=== PATIENT | female | born 1945 | race Caucasian/White ===

== ENCOUNTER → 2018-09-16 | Outpatient (CLI) | payer OTHER ==
[~2018-09-16] VITALS: Ht 157.5 cm; Wt 104.3 kg
[~2018-09-16] MED LIST: ACCU-CHEK AVIV1 EAC1 INJECTION; ASPIR 8181 MG PO; CALCIUM 600 +1 EAC1 PO; EFFEXOR XR37.5 MG PO; FISH OIL 1,001000 M2 PO; KEFLEX500 M1 PO; LANTUS SOL100 UNIT/1 SUBQ; LASIX 20 MG TAB20 MG PO; LOSARTAN POTAS100 MG PO; MAGNESIUM500 MG PO; MOBIC7.5 MG PO; NEURONTIN 300300 M1 PO; OXYBUTYNIN 5 MG5 M2 PO; ROPINIROLE HCL4 MG PO
--- NOTE | ~2018-09-16 | HPC ---
[facility] [place] [address] PAIN MANAGEMENT CONSULTATION Name: GURDEEP ALLAN Room #: REG [facility] MHarvey.#: [id number] Admission: 09/16/18 Attend Phys: Pool Pate DO Discharge: Date of : 41 Report #: [id number] THIS REPORT FOR: //name// CC: Pool Francisco MD DATE OF SERVICE: 09/16/2018 CHIEF COMPLAINT: Low back pain, left lower extremity pain with paresthesias. HISTORY OF PRESENT ILLNESS: As you know, the patient is a morbidly obese 73-year-old female who has been referred to our service for low back pain, left lower extremity pain with paresthesias. The patient indicates her pain began 04/10/2018. The patient denies any specific injury or trauma that may have led to symptom development. The patient indicates that she has been experiencing slow and progressive worsening of symptoms, ultimately sought evaluation through her primary care physician who referred the patient to our clinic for evaluation. She comes to us today with no imaging studies, no x-rays, no MRI. She has been started on conservative medication therapy without benefit. The patient indicates today, pain is periodic, describes the pain as throbbing, stabbing, numbness and tingling. Places current pain score 3/10, daily average at 2-3/10, worst pain has been is 10/10. The patient states that standing, walking, repositioning and weather tend to exacerbate symptoms, staying off her leg in a recliner tends to improve pain. She has been referred to our service for evaluation for suspected lumbar radiculopathy. PAST MEDICAL HISTORY: 1. Class 3 morbid obesity. 2. Diabetes mellitus type 2, insulin-dependent. 3. Osteopenia. 4. Urinary incontinence. 5. Depression. 6. Hypertension. PAST SURGICAL HISTORY: 1. Appendectomy. 2. Bladder surgery. 3. Cervical surgery. 4. Cholecystectomy. 5. Hip surgery. 6. Hysterectomy. 7. Knee surgery. 8. Tonsillectomy. 9. Wrist surgery. [facility] [address] [place] [address] PAIN MANAGEMENT CONSULTATION Name: SANJANAGURDEEP ZOLTAN Room #: REG ROSE Cabello#: [id number] Admission: 09/16/18 Attend Phys: Pool Pate DO Discharge: Date of : 41 Report #: [id number] SOCIAL HISTORY: The patient denies tobacco, alcohol, IV or illicit drug use. She is retired, retired years ago. She is not receiving workmen's compensation nor is she trying to obtain disability benefits. She is accompanied by her daughter who is present in room today. REVIEW OF SYSTEMS: Positive for weight gain, eye disease, wearing corrective eyewear, blurred and double vision, cataracts, chronic sinus problems with rhinitis, mouth sores, sore throat with voice changes, asthma, wheezing, frequent urination, nocturia, incontinence and dribbling to urine, varicose veins, head injury, depression, insomnia, thyroid disease, insulin-dependent diabetes, excessive urination, low back pain, lower extremity pain with paresthesias. All other review of systems negative per 12-point review of systems other than those listed in history of present illness. Pain impact score 11-14, mild interference of daily activity secondary to pain. ALLERGIES: LISINOPRIL, BACTRIM, CIPROFLOXACIN, ZOLPIDEM, METFORMIN. CURRENT MEDICATIONS: Magnesium oxide 500 mg once a day, calcium carbonate 1 tab per day, cephalexin 500 mg twice a day, meloxicam 7.5 mg once a day, venlafaxine 37.5 mg once a day, insulin 100 units subq before bedtime, gabapentin 300 mg twice a day, ropinirole 4 mg once a day, oxybutynin 5 mg once a day, omega-3 fish oil 1 tab per day, aspirin 81 mg per day, losartan 100 mg once a day, furosemide 20 mg once a day. IMAGING: There is no imaging available. PQRS: The patient has osteoarthritic changes of the left upper extremity, right lower extremity. She has arthritic changes of the lumbar spine, no rheumatoid arthritis. She is placing pain intensity today 3/10. She is a fall risk, but has not had a fall in the last 3 months. She is not on blood thinners, but is treated for hypertension. She is not on chronic opioids. Her risk assessment tool for opioid addiction low. Functional assessment up to 14, mild interference of daily activity secondary to pain. PHYSICAL EXAMINATION: VITAL SIGNS: Blood pressure 134/67, pulse 65, respiratory rate 14 and unlabored. The patient is 96% on room air. Height 5 feet 2 inches tall, weight 230 pounds, BMI calculated 42.1. GENERAL: Well-developed, well-nourished, well-hydrated, class 3, morbidly obese 73-year-old female, appears her stated age, placing current pain score anywhere from 3-4/10. HEENT: Normocephalic, atraumatic. Pupils equal, round, reactive to light. Extraocular muscles are intact. Sclerae nonicteric without injection. NEUROLOGIC: Cranial nerves 2-12 grossly intact. Speech is fluent. The patient [address] [address] PAIN MANAGEMENT CONSULTATION Name: GURDEEP ALLAN Room #: REG [facility]#: [id number] Admission: 09/16/18 Attend Phys: Pool Pate DO Discharge: Date of : 41 Report #: [id number] deemed a good historian. LUNGS: Clear. No wheeze, rhonchi or rales. CARDIOVASCULAR: Regular. No appreciable gallop or rub. ABDOMEN: Soft. Severely obese, normoactive bowel sounds. EXTREMITIES: Show no clubbing, no cyanosis. There is 1-2+ nonpitting lower extremity edema noted bilaterally around the ankles and feet. MUSCULOSKELETAL: Lower extremity strength is deconditioned bilaterally, but rated at 5/5. She is intact to light touch from L1 through S2 dermatomes. Seated straight leg raising negative. Supine straight leg raising mildly positive. Tiffany's test negative. Gait antalgic favoring left lower extremity over right. Weightbearing causes intensification of pain. Seated position causes mild change in symptoms. Lumbar provocation testing including extension, rotation, lateral flexion all intensify axial back pain. Tiffany's test is equivocal right, negative left. Ankle clonus negative. Babinski is negative. ASSESSMENT: 1. Lumbar radiculopathy. 2. Lumbosacral spondylosis with radiculopathy. 3. Degeneration of lumbar spine. 4. Class 3 morbid obesity. 5. Chronic intractable pain. PLAN: 1. The patient, based on physical exam, history she provides and the description of distribution and intensity appears to be suffering from lumbar radiculopathy. The patient has been complaining of pain that began in 03/2018. The patient to date has not undergone x-ray or MRI imaging of the lumbar spine. This would help us to determine the extent of pathology in the lumbar region, so that we can help direct the patient's care more effectively. The patient and I discussed this at length today. Further imaging will begin with x-ray of the lumbar spine. The patient will be sent for this x-ray today. I am quite concerned in any patients that are on alendronate for treatment of osteopenia with low back symptoms of compression fractures, but also the amount of which steroids can be provided to the patient given their known potential of reducing mineralization of bone secondary to effects upon osteoblastic activity. The patient will undergo x-ray imaging initially. We will review the findings once they are available. 2. We did discuss the possibility of having the patient look towards treatment options for lumbar radicular symptoms. We discussed options, which would include physical therapy, stretching exercise, core strengthening and a concerted effort at weight loss. This is typically the cornerstone of treatment. We discussed medication management prior to providing suggestions of neuropathic pain medications and potential low dose opioid for pain control. We discussed epidural injections under fluoroscopic guidance assuming her osteopenia is not advanced to an osteoporosis level. We discussed surgical options with the patient today. After reviewing risks and benefits of all [address] [address] PAIN MANAGEMENT CONSULTATION Name: SANJANAGURDEEP Room #: REG CLMartir Cabello#: [id number] Admission: 09/16/18 Attend Phys: Pool Pate DO Discharge: Date of : 41 Report #: [id number] proposed treatment options, the patient chose to begin with x-ray imaging and to begin the process of authorization for an epidural injection. 3. The patient will be sent for x-ray of the lumbar spine, both AP and lateral imaging. We will review the findings once they are available. The patient can contact her clinic either later today or first thing tomorrow for the results. X-ray imaging will be reviewed with the patient in followup visit. 4. We will begin the process of authorization for the patient to undergo a lumbar epidural injection under fluoroscopic guidance. The patient was advised this could take anywhere from 4-7 working days to begin this process immediately. Once we have achieved this authorization, we will have the patient return to undergo the first in a series of epidural injections under fluoroscopic guidance, assuming no contraindications. 5. We wish to thank Dr. Francisco for the referral of the patient to our clinic. We will keep you apprised of response to treatment as we address suspected lumbar radiculopathy. Again, we wish to thank you for the opportunity to see the patient in consultation. By: [id number] Pool Pate DO /nt
[2018-09-16 10:19] VITALS: BP 134/67
== END | disposition home or self-care (01) ==
LOC: PAIN 07:00
DX: M47.26 Other spondylosis with radiculopathy, lumbar region (principal); M51.16 Intervertebral disc disorders with radiculopathy, lumbar region; E66.01 Morbid (severe) obesity due to excess calories; G89.29 Other chronic pain; E11.9 Type 2 diabetes mellitus without complications; M85.80 Other specified disorders of bone density and structure, unspecified site; R32 Unspecified urinary incontinence; F32.9 Major depressive disorder, single episode, unspecified; I10 Essential (primary) hypertension; Z79.4 Long term (current) use of insulin; Z90.49 Acquired absence of other specified parts of digestive tract; Z90.710 Acquired absence of both cervix and uterus; Z90.89 Acquired absence of other organs; Z98.890 Other specified postprocedural states; Z88.8 Allergy status to other drugs, medicaments and biological substances; Z79.899 Other long term (current) drug therapy; Z79.82 Long term (current) use of aspirin; Z68.41 Body mass index [BMI] 40.0-44.9, adult

== ENCOUNTER → 2018-09-23 | Outpatient (CLI) | payer OTHER ==
[~2018-09-23] VITALS: Ht 157.5 cm; Wt 105.7 kg
--- NOTE | ~2018-09-23 | HPC ---
[facility] [place] [address] PAIN MANAGEMENT CONSULTATION Name: GURDEEP ALLAN Room #: REG [facility] Destiney#: [id number] Admission: 09/23/18 Attend Phys: Pool Pate DO Discharge: Date of : 41 Report #: [id number] THIS REPORT FOR: //name// CC: Pool Francisco DATE OF SERVICE: 09/23/2018 CHIEF COMPLAINT: Low back pain, left lower extremity pain and paresthesias. HISTORY OF PRESENT ILLNESS: As you know, the patient is a class III morbidly obese 73-year-old female referred to our service for low back pain, left lower extremity pain and paresthesias. She came to our clinic without any imaging studies for evaluation. She was given a presumptive diagnosis of lumbar radiculopathy and lumbosacral spondylosis with radicular symptoms. We discussed at that visit the general treatment options for lumbar radicular symptoms. We discussed physical therapy, stretching exercise, core strengthening and weight loss, which needs to be addressed rapidly in this patient's case. We discussed medication management as an option for treatment. We discussed epidural injections under fluoroscopic guidance and surgical options. After a very long discussion with the patient about treatment options and our desire to further evaluate the patient. She was sent for x-ray imaging and established today's appointment for an epidural injection under fluoroscopic guidance. Third democrat payer restrictions require that authorization be obtained before the patient could undergo the procedure. She returns today in followup visit reporting a pain score of 3/10. She states pain is periodic, throbbing, stabbing, numbness and tingling; exacerbated with activity, standing, walking, weather; improves with sitting. She returns today to undergo lumbar epidural injection under fluoroscopic guidance. ALLERGIES: LISINOPRIL, BACTRIM, CIPROFLOXACIN, ZOLPIDEM, METFORMIN. CURRENT MEDICATIONS: Magnesium oxide, calcium carbonate, cephalexin, meloxicam, venlafaxine, insulin, gabapentin, ropinirole, oxybutynin, omega 3 fish oil, aspirin, losartan, and furosemide. SOCIAL HISTORY: The patient denies tobacco, alcohol, IV or illicit drug use. She is retired, retired years ago, accompanied by her daughter today. IMAGING: X-ray of the lumbar spine obtained on 09/16/2018 shows extensive lumbar spine degenerative changes, most prominent at the L2-L3 and L3-L4 levels, moderate facet degenerative changes present at the L4-L5 level. No acute fracture or subluxation. Surgical changes of the left bipolar hip arthroplasty present. [address] [address] PAIN MANAGEMENT CONSULTATION Name: GURDEEP ALLAN Room #: REG CL Destiney#: [id number] Admission: 09/23/18 Attend Phys: Pool Pate DO Discharge: Date of : 41 Report #: [id number] PHYSICAL EXAMINATION: VITAL SIGNS: Blood pressure 130/63, pulse 64, respiratory rate 16 and unlabored. The patient is 95% on room air. Height 5 feet 2 inches tall, weight is 233 pounds, BMI calculated 42.6. GENERAL: Well-developed, well-nourished, well-hydrated, class III morbidly obese 73-year-old female appearing stated age, placing current pain score 3/10. HEENT: Normocephalic, atraumatic. Pupils equal, round, reactive to light. Extraocular muscles are intact. EXTREMITIES: Show no clubbing, no cyanosis, no edema. MUSCULOSKELETAL: Lower extremity strength appears symmetrical, but deconditioning is noted bilaterally. Intact to light touch from L1 through S2 dermatomes. Seated straight leg raising negative. Supine straight leg raising mildly positive on the left. Gait is antalgic favoring left lower extremity over right. ASSESSMENT: 1. Lumbar radiculopathy. 2. Lumbosacral spondylosis with radiculopathy. 3. Degeneration of the lumbar spine. 4. Class III morbidly obese. 5. Chronic intractable pain. PLAN: 1. The patient returns today in followup visit having received precertification to undergo a lumbar epidural injection under fluoroscopic guidance to address lumbar radicular symptoms involving low back and left lower extremity. The patient has been advised of the risks and the benefits of a lumbar epidural injection. These risks include but are not necessarily limited to bleeding, bruising, infection, worsening pain, no relief of pain, also risk of temporary or permanent muscle weakness, temporary or permanent nerve damage, possible paralysis and . The patient states she understood and wished to proceed. 2. The patient and I did spend time today reviewing her x-ray imaging. It shows extensive lumbar spine degenerative changes, most prominent at the L2-L3, L3-L4 level with moderate changes at the L4-L5 level. I am pleased to advise the patient there are no subluxations or fractures noted, though there is loss of height, which is the likely source of the patient's pain. I am very concerned of central canal stenosis that is the source of the patient's symptoms currently. Further evaluation may be necessary in the form of a lumbar MRI, but at this point, we recommend trialing epidural injection. If this is effective, then continuing this treatment option. If ineffective, then move forward with imaging. 3. No medication changes made at today's visit. The patient to continue current medical therapy as previously prescribed. 4. We will see the patient back in followup visit in 30 days. At that time, review the efficacy of today's epidural injection and determine if next in the series of epidural injections might be necessary versus further imaging and [address] [address] PAIN MANAGEMENT CONSULTATION Name: GURDEEP ALLAN Room #: REG ROSE Davis.#: [id number] Admission: 09/23/18 Attend Phys: Pool Pate DO Discharge: Date of : 41 Report #: [id number] discussion of more definitive treatment options. PROCEDURE NOTE: DESCRIPTION OF PROCEDURE: L4-L5 lumbar epidural steroid injection under fluoroscopic guidance. This is the first procedure of the first series that the patient is undergoing. After obtaining written consent, the patient was taken back to the fluoroscopy suite, placed in a prone position with pillow under the abdomen to decrease lumbar lordosis. The skin overlying the lumbosacral area was then prepped and draped in aseptic fashion. The L4-L5 vertebral interspace was then identified by AP fluoroscopy. The skin and subcutaneous tissue overlying the target site of injection was anesthetized with 3 mL 1% lidocaine. A 20-gauge, 4-1/2-inch Tuohy needle was then advanced under fluoroscopic guidance towards the epidural space using a left paramedian approach. The epidural space was identified using loss of resistance to air technique. After negative aspiration for heme or cerebrospinal fluid, a total of 1 mL of Omnipaque was injected. A lumbar epidurogram was confirmed using both AP and lateral fluoroscopy. After negative aspiration for heme or cerebrospinal fluid, 5 mL of a solution containing 2 mL 40 mg per mL 80 mg total triamcinolone, 3 mL of lidocaine 1% was injected in increments. Contrast spread was noted in posterior epidural space. The needle was then retracted approximately half way and needle tract flushed with 1 mL of 1% lidocaine. Needle was then removed. There were no apparent sensory or motor deficits in the lower extremity following the procedure. A sterile bandage was placed over the injection site. The heart rate, pulse, oximetry and blood pressure were continuously monitored after the procedure. There were no apparent complications. The patient tolerated the procedure well and was carefully escorted to the recovery room in stable condition. There were no apparent complications. After meeting discharge criteria, the patient was then discharged home. By: [id number] Pool Pate DO /nt
[2018-09-23 14:13] VITALS: BP 130/63
== END | disposition home or self-care (01) ==
LOC: PAIN 06:39
DX: M51.16 Intervertebral disc disorders with radiculopathy, lumbar region (principal); M47.27 Other spondylosis with radiculopathy, lumbosacral region; G89.29 Other chronic pain; E66.01 Morbid (severe) obesity due to excess calories; Z88.8 Allergy status to other drugs, medicaments and biological substances; Z79.82 Long term (current) use of aspirin; Z79.899 Other long term (current) drug therapy; Z68.41 Body mass index [BMI] 40.0-44.9, adult

== ENCOUNTER → 2018-10-28 | Outpatient (CLI) | payer OTHER ==
[~2018-10-28] VITALS: Ht 157.5 cm; Wt 104.9 kg
[~2018-10-28] MED LIST changes: +HYDROCODON-ACE1 EAC7 PO; +NEURONTIN600 MG PO
--- NOTE | ~2018-10-28 | HPC ---
[facility] [place] [address] PAIN MANAGEMENT CONSULTATION Name: GURDEEP ALLAN Room #: REG [facility] MHarvey.#: [id number] Admission: 10/28/18 Attend Phys: Pool Pate DO Discharge: Date of : 41 Report #: [id number] THIS REPORT FOR: //name// CC: Pool Francisco MD DATE OF SERVICE: 10/28/2018 REFERRING PHYSICIAN: Willian Francisco MD CHIEF COMPLAINT: Low back pain, left lower extremity pain and paresthesias. HISTORY OF PRESENT ILLNESS: As you know, the patient is a class 3 morbidly obese, somewhat confused 73-year-old female, who was referred to our service for low back pain, left lower extremity pain with paresthesias. She came to our clinic without any imaging studies for evaluation. She was given presumptive diagnosis of lumbar radiculopathy and lumbosacral spondylosis with radicular symptoms. We discussed at that visit treatment options, which would include physical therapy, stretching exercise, core strengthening and a concerted effort at weight loss along with possible epidural injections under fluoroscopic guidance. The patient has undergone epidural injection under fluoroscopic guidance on 08/23/2018 with reported no improvement in symptoms. She returns today in followup visit to discuss options for treatment. Given the lack of efficacy with the initial epidural injection, I would not recommend further injections until which time further evaluation from MRI standpoint might be warranted. Given the confusion the patient has, there is concern about initiation of medication therapy. She is accompanied by her daughter today, requesting adjustments in medication management to address ongoing pain issues. Apparently, the patient is now in a nursing facility to help control her medications. Apparently, she has been taking medications inappropriately as well. They return today to discuss options for treatment given the lack of efficacy with a lumbar epidural injection. ALLERGIES: LISINOPRIL, BACTRIM, CIPROFLOXACIN, ZOLPIDEM and METFORMIN. CURRENT MEDICATIONS: Magnesium oxide, calcium carbonate, cephalexin, meloxicam, venlafaxine, insulin, gabapentin, ropinirole, oxybutynin, omega 3 fish oil, aspirin, losartan, furosemide. SOCIAL HISTORY: The patient denies tobacco, alcohol, IV or illicit drug use. She is retired, retired years ago. She is now living in an assisted living facility. She is accompanied by her daughter who was providing the majority of the history as the patient is having difficulty with comprehension on conversation. [address] [address] PAIN MANAGEMENT CONSULTATION Name: GURDEEP ALLAN Room #: REG [facility] [place]#: [id number] Admission: 10/28/18 Attend Phys: Pool Pate DO Discharge: Date of : 41 Report #: [id number] IMAGING: There is no new imaging available, though previous imaging does show extensive lumbar degenerative changes, most pronounced at L2-L3 and L3-L4. PQRS: The patient has known osteoarthritic changes of the lumbar spine, bilateral hips and knees. No rheumatoid arthritis. She is a fall risk, has not had a fall in the last 3 months. She is not on blood thinners, but is treated for hypertension. She is not on long-term opioid. She is a moderate risk for opioid difficulties, pain assessment tool of 60/70 indicating near complete interference of daily activities secondary to pain. PHYSICAL EXAMINATION: VITAL SIGNS: Blood pressure 110/64, pulse 79, respiratory rate 16 and unlabored. The patient is 93% on room air. Height 5 feet 2 inches tall, weight 231.2 pounds, BMI calculated 42.3. GENERAL: Well-developed, well-nourished, well-hydrated, class 3 morbidly obese 73-year-old female, appears stated age. She is confused, somewhat disoriented and having difficulty with maintaining understanding with conversation, placing current pain score at around 3/10. HEENT: Normocephalic, atraumatic. Pupils equal, round, reactive to light. Extraocular muscles are intact. EXTREMITIES: Show no clubbing, no cyanosis, 1+ nonpitting lower extremity edema. MUSCULOSKELETAL: Lower extremity strength is symmetrical, but deconditioned bilaterally. Intact to light touch from L1 through S2 dermatomes. Seated straight leg raising negative. Supine straight leg raising positive. Gait antalgic, favoring left lower extremity. ASSESSMENT: 1. Lumbar radiculopathy. 2. Lumbosacral spondylosis with radiculopathy. 3. Degeneration of the lumbar spine. 4. Class 3 morbid obesity. 5. Chronic intractable pain. PLAN: 1. The patient returns today in followup visit, indicating no improvement in symptoms with the epidural injection provided at last visit. We discussed with the patient options for treatment for lumbar radicular symptoms. We discussed the following today. We discussed physical therapy, stretching exercise, core strengthening, and weight loss. I am comfortable, indicating that the patient will not participate in this type of activity, even though it would be the most effective way to treat her symptoms. We discussed medication management with escalating doses of her gabapentin and more control of the use of her hydrocodone, also the addition of a nonsteroidal anti-inflammatory. We discussed possible epidural injection under fluoroscopic guidance, but given the lack of efficacy, it would likely provide no improvement, though given her [address] [address] PAIN MANAGEMENT CONSULTATION Name: GURDEEP ALLAN Room #: REG [facility]#: [id number] Admission: 10/28/18 Attend Phys: Pool Pate DO Discharge: Date of : 41 Report #: [id number] distribution, there is a possibility improvement may be noted. We also discussed with the patient today surgical options, which may be necessary if pain improvement is to be obtained. After reviewing risks and benefits of all proposed treatment options, the patient chose to begin with adjustments in medication therapy. 2. The patient will start on Mobic, but will increase her dose from 7.5 once a day on an as-needed basis to 7.5 mg b.i.d. This will be the baseline control for anti-inflammatory effects. She was given #60 tablets, no refills, one month worth of medication. 3. The patient will escalate dose of gabapentin. She will increase to 600 mg t.i.d. starting tonight. Continue the t.i.d. dosing for 3 weeks, then begin escalating gabapentin to 600 mg in the morning, 600 mg at noon and 900 mg at night for 3 nights; then 600 mg in the morning, 600 mg noon and 1200 mg at night for 3 nights and continuing escalating doses until you reach 1200 mg 3 times a day. The patient was advised to watch for side effects of somnolence, decreased mental acuity, disorientation, confusion, mental slowing with the use of this neuropathic medication. She was given prescriptions of the 600 mg tablets and 300 mg tablets to make the titration of dosing. 4. We have agreed to provide the patient with a short dosing of [place] 5/325 one tab p.o. b.i.d., #60. We have written orders that the nursing staff at her assisted living facility will provide the medication only when requested. She is not to take more than 2 tablets a day and in a monitored situation. She was given a prescription of #60 tablets, no refills. 5. We will see the patient back in followup visit in 1 month to review efficacy of medications provided and determine if continuation of this therapy would be recommended. Once we stabilize the patient on her dosing of therapy, we will be returning her care to the referring physician to continue this treatment option. If no improvement in symptoms with medication, I would recommend evaluation with MRI for possible surgical considerations. By: [id number] Pool Pate DO /nt
[2018-10-28 12:55] VITALS: BP 110/64
== END ==
LOC: PAIN 10:06
DX: M47.27 Other spondylosis with radiculopathy, lumbosacral region (principal); M51.36 Other intervertebral disc degeneration, lumbar region; E66.01 Morbid (severe) obesity due to excess calories; G89.4 Chronic pain syndrome

== ENCOUNTER → 2018-12-09 | Outpatient (CLI) | payer OTHER ==
[~2018-12-09] VITALS: Ht 157.5 cm; Wt 103.1 kg
[2018-12-09 13:15] VITALS: BP 130/53
--- NOTE | 2018-12-09 13:27 | NUR ---
Pain Clinic Assessment: 1. History of Osteoarthritis: Left Upper Extremity Right Lower Extremity History of Rheumatoid Arthritis: Not Applicable 2. Height: 5 ft. 2 in. 157.5 cm. Weight: 227.4 lb. oz. 103.148 kg. Patient's BMI: 41.6 3. Vital Signs: BP: 130/53 Pulse: 63 Resp: 14 Temp: 02 Sat: 97 ECG Mon: 4. Pain Intensity: 0 5. Fall Risk: Dizziness: N Needs help standing or walking: Y Fallen in the last 3 months: Y Fall risk comments: 6. Patient on Blood Thinner: None 7. History of Hypertension: Y 8. Opioid Therapy greater than 6 weeks: N Opiate Contract Signed: 9. Risk Assessment Tool Provided: LOW 10. Functional Assessment Tool: 11. Recreational Drug Use: Never Drug Type: Tobacco Use: Never Smoker Tobacco Type: Amount or Packs/day: How Many Years: Alcohol Use: No Frequency: Quant:
--- NOTE | 2018-12-17 10:54 | HPC ---
[facility] [place] [address] PAIN MANAGEMENT CONSULTATION Name: GURDEEP ALLAN Room #: REG [facility] Ryan.#: [id number] Admission: 12/09/18 Attend Phys: Pool Pate DO Discharge: Date of : 41 Report #: [id number] THIS REPORT FOR: //name// CC: Pool Francisco MD DATE OF SERVICE: 12/09/2018 CHIEF COMPLAINT: Low back pain, left lower extremity pain and paresthesias. HISTORY OF PRESENT ILLNESS: As you know, the patient is a class 3, morbidly obese, somewhat confused 73-year-old female who was referred to our service for chronic low back pain, left lower extremity pain with paresthesias. The patient has been diagnosed with lumbar radiculopathy, lumbosacral spondylosis with radicular symptoms and lumbar degeneration. The patient continues on medication management for which she finds good benefit. We started the patient on a combination of therapy utilizing Meloxicam, gabapentin and hydrocodone. She returns today in followup visit indicating excellent benefit with the combination of therapy. She is now placing pain score 0/10. When her pain is present, it is periodic, it is throbbing and stabbing in sensation. Activities, standing, walking and weather changes tend to exacerbate symptoms. Sitting and medications have improved her symptoms. She has returned requesting refill on medications at current dosing. ALLERGIES: LISINOPRIL, BACTRIM, CIPROFLOXACIN, ZOLPIDEM AND METFORMIN. CURRENT MEDICATIONS: Magnesium oxide, calcium carbonate, cephalexin, meloxicam, venlafaxine, insulin, gabapentin, ropinirole, oxybutynin, omega 3 fish oil, aspirin, losartan, furosemide and hydrocodone. SOCIAL HISTORY: The patient denies tobacco, alcohol, IV or illicit drug use. She is retired, retired years ago. She is now living in assisted living facility. She is accompanied by her daughter who is providing the majority of history again today. IMAGING: No new imaging available. PQRS: The patient has known osteoarthritic changes of the lumbar spine, bilateral hips and knees. No rheumatoid arthritis. She is placing pain intensity today at 0/10. She is a fall risk and has had a fall in the last 3 months. She is using a roller walker and a wheelchair for mobilization. She has not been on opioids greater than 6 weeks. She has a low assessment for opioid abuse. She place pain impact score at 30/70, moderate interference of daily activities secondary to pain. [address] [address] PAIN MANAGEMENT CONSULTATION Name: GURDEEP ALLAN Room #: REG [facility].#: [id number] Admission: 12/09/18 Attend Phys: Pool Pate DO Discharge: Date of : 41 Report #: [id number] PHYSICAL EXAMINATION: VITAL SIGNS: Blood pressure 130/53, pulse 63, respiratory rate 14 and unlabored. The patient is 97% on room air. Height 5 feet 2 inches tall, weight 227.4 pounds and BMI calculated 41.6. GENERAL: Well-developed, well-nourished, well-hydrated, class 3, morbidly obese 73-year-old female. She appears her stated age, placing pain score today at 0/10. HEENT: Normocephalic and atraumatic. Pupils are equal, round and reactive to light. Speech is fluent. The patient deemed a fair historian. EXTREMITIES: Show no clubbing, no cyanosis, 1+ nonpitting lower extremity edema noted bilaterally. MUSCULOSKELETAL: Lower extremity strength is symmetrical, but deconditioned. 4/5, intact to light touch from L1 through S2 dermatomes. Seated straight leg raising is negative. Supine straight leg raising is positive on the left. Tiffany's test is negative. Gait antalgic favoring the left lower extremity over right. ASSESSMENT: 1. Lumbar radiculopathy. 2. Lumbosacral spondylosis with radiculopathy. 3. Degeneration of the lumbar spine. 4. Class 3 morbid obesity. 5. Chronic intractable pain. PLAN: 1. The patient returns today in followup visit now noting a pain score 0/10. She is very pleased with response to the medication therapy. She wishes to continue the medication at current dosing. She returns for refill of the therapy in hopes of continuing analgesic benefit. 2. We reviewed the fact that opiate medications are being used to provide analgesia adequate to support activities of daily living, not attempting to achieve a specific pain score on the 0-10 Visual Analog Scale. The current opiate medications are providing sufficient analgesia to allow the patient to participate in activities of daily living. The patient is not exhibiting any aberrant behavior suggestive of drug diversion. The patient is not having any adverse reactions to medications. The patient is not suffering from daytime somnolence or mental acuity changes. The patient is managing opiate-induced constipation with appropriate octc-usm-xsxyerd agents and dietary considerations. The patient was counseled on concern for caution with operating a motor vehicle while using opiate medications. A physical exam was performed and the patient's functional status was evaluated. All patients with back pain were advised against the bed rest greater than 4 days and were advised to return to normal activities. Pain score assessment was noted and the treatment plan was reviewed with the patient. All current medications, both prescribed and OTC were reviewed and reconciled on the [facility] [address] [place] [address] PAIN MANAGEMENT CONSULTATION Name: GURDEEP ALLAN Room #: REG [facility] [place].#: [id number] Admission: 12/09/18 Attend Phys: Pool Pate DO Discharge: Date of : 41 Report #: [id number] electronic medical record. Tobacco screening was accomplished and smoking cessation was advised when indicated. BMI was noted and diet/exercise modification was recommended for all patients following outside normal parameters. I reviewed with the patient today their responsibilities to safeguard prescription medications, reviewed their responsibility to utilize medications only as prescribed by the physician. They are to seek and receive pain medications only from 1 physician group ( [facility]). They are to use 1 pharmacy and keep the clinic informed if they change pharmacies. Their responsibilities include making followup visits in a timely fashion and to avoid abrupt discontinuation of medication usage. Their responsibilities further include bringing their medications (bottles from the pharmacy with residual pills) to the visit for possible confirmation of pill counts and the patient understands it is their responsibility to submit to random drug screens to ensure both that the medications prescribed are present, and that no other controlled substances are present. All prescriptions provided today were generated electronically. 3. The patient was provided a prescription of hydrocodone 5/325 one tab p.o. q. 12 hours p.r.n. for pain. I have given the patient #60, no refills. 4. The patient was provided a prescription of gabapentin 600 mg dose one tab p.o. t.i.d., #90 with no refills. 5. The patient was provided a prescription of meloxicam 7.5 mg one tab p.o. b.i.d., #60 with no refills. 6. We will see the patient back in followup visit in 1 month. She may return to followup with her PCP to continue this therapy if she wishes to do so. <ELECTRONICALLY SIGNED> By: Pool Pate DO 12/17/18 [id number] Pool Pate DO /nt
== END ==
LOC: PAIN 06:47
DX: M47.27 Other spondylosis with radiculopathy, lumbosacral region (principal); M51.16 Intervertebral disc disorders with radiculopathy, lumbar region; G89.4 Chronic pain syndrome; Z79.899 Other long term (current) drug therapy; Z68.41 Body mass index [BMI] 40.0-44.9, adult

== ENCOUNTER 2018-12-28 21:45 | Inpatient (IN) | payer OTHER ==
[~2018-12-28] VITALS: Ht 157.5 cm; Wt 109.4 kg
[2018-12-28 21:46] VITALS: BP 109/52
--- NOTE | 2018-12-28 22:16 | EKG ---
[address] [address] ELECTROCARDIOGRAM REPORT Name: GURDEEP ALLAN Room #: PRE [facility]..#: [id number] ������������������ Admission: ������������������ Attend Phys: Discharge: ������������������ Date of : 41 Report #: [id number] ����������������������������������������������������������������� [id number] THIS REPORT FOR: //name// [facility] ED Test Date: 2018-12-28 Test Time: 22:08:57 Pat Name: GURDEEP WINKLERORD Department: Room: Gender: F Photogrammetric Engineer: luz marina : 1945 Requested By: Bang Hamilton Order Number: [id number] MD: Rigoberto Mercado Measurements Intervals [place] Rate: 82 P: 57 UT: 189 QRS: 22 QRSD: 85 T: 44 QT: 363 QTc: 424 Interpretive Statements Sinus rhythm Probable left atrial enlargement No previous ECG available for comparison Electronically Signed On 12-28-2018 22:16:16 [employer] SERVICE EMPLOYEE by Rigoberto Mercado [email or web address] ��������������������������������������������� <ELECTRONICALLY SIGNED> ���������������������������������������� By: Rigoberto Mercado MD ��������������������������������������������� 12/28/186 07 07 Rigoberto Mercado MD /EPI
[2018-12-28 22:25] LABS: CALCIUM 9.6 mg/dL (8.5-10.1); POTASSIUM 4.6 mmol/L (3.5-5.1)
[2018-12-28 22:33] LABS: APTT 22.4 Seconds (24.5-32.8); INR 1.1; PROTIME 11.4 Seconds (9.3-11.4)
[2018-12-28 22:34] LABS: ALBUMIN 3.5 g/dL (3.4-5.0); MAGNESIUM 1.3 mg/dL (1.8-2.4); TOTAL BILIRUBIN 0.4 mg/dL (<0.1-1.0)
[2018-12-28 22:39] LABS: ABSOLUTE NEUTROPHILS 4.8 thou/uL (1.4-8.2); BASOPHILS 0.6 % (0.0-2.0); EOSINOPHILS 0.2 % (0.0-3.0); HEMATOCRIT 29.3 % (37.0-47.0); HEMOGLOBIN 9.8 gm/dL (12.0-15.0); LYMPHOCYTES 17.8 % (24.0-44.0); MCH 30.9 pg (26.0-34.0); MCHC 33.5 g/dL (28.0-37.0); MCV 92.2 fL (80.0-100.0); MONOCYTES 8.9 % (1.0-8.0); PLATELET COUNT 149 thou/uL (150-400); POLYS 72.5 % (36.0-66.0); RBC 3.18 mil/uL (4.20-5.00); RDW 13.5 % (10.5-14.5); WBC 6.6 thou/uL (4.0-11.0)
[2018-12-28] MEDS ORDERED: LIPITOR80 MG PO (22:39)
[2018-12-28] MEDS ORDERED: ALENDRONATE SOD70 MG PO (22:39)
[2018-12-28] MEDS ORDERED: BIOTENE1000 ML (22:40)
[2018-12-28 22:41] LABS: TROPONIN-I 0.91 ng/mL (<0.06)
[2018-12-28] MEDS ORDERED: CLONAZEPAM 0.50.5 M1 PO (22:42)
[2018-12-28] MEDS ORDERED: CORTISPORIN OTI10 ML OTIC (22:45)
[2018-12-28] MEDS ORDERED: COZAAR 25 MG TA25 M2 PO (22:46)
[2018-12-28] MEDS ORDERED: CYCLOBENZAPRINE5 MG PO (22:47)
[2018-12-28] MEDS ORDERED: VENLAFAXIN37.5 MG/1 PO (22:52)
[2018-12-28] MEDS ORDERED: LANTUS100 UNIT/M SUBQ (23:05)
[2018-12-28] MEDS ORDERED: REQUIP4 MG PO ×2 (23:07→23:08)
[2018-12-28] MEDS ORDERED: TRAZODONE HCL100 MG PO (23:09)
[2018-12-28] MEDS ORDERED: VOLTAREN GEL 1100 G2 (23:10)
[2018-12-28 23:35] LABS: URINE BILIRUBIN NEGATIVE (Negative); URINE BLOOD NEGATIVE (Negative); URINE CLARITY CLEAR; URINE COLOR YELLOW; URINE GLUCOSE-RANDOM* NEGATIVE (Negative); URINE KETONES NEGATIVE (Negative); URINE NITRITE-REFLEX NEGATIVE (Negative); URINE PROTEIN (DIPSTICK) NEGATIVE (Negative); URINE UROBILINOGEN 0.2 E.U./dl (0.2-1.0)
[2018-12-28 23:36] LABS: URINE LEUKOCYTES-REFLEX NEGATIVE (Negative)
--- NOTE | 2018-12-28 23:38 | NUR ---
JONATHAN VENTURA- TALKED WITH DAUGHTER AWARE OF ADMISSION, PER OK OF PT INFORMATION GIVEN TO DAUGHTER
[2018-12-28 23:46] VITALS: BP 100/49
[2018-12-29 02:39] VITALS: BP 96/63
--- NOTE | 2018-12-29 03:47 | NUR ---
PT ARRIVED UNIT AT ABOUT 0100 VIA ER. PT A/OX4, ON 3L O2 VITAL SIGNS STABLE, ASSESSMENT CHARTED. PT HAS RESTLESS LEG SYNDROME. ADMISSION INTERVENTIONS COMPLETED, CONSENTS SIGNED. PT WEAK ON FEET BUT ABLE TO PIVOT TO BEDSIDE COMMODE. NO COMPLAINTS OF PAIN/CHEST PAIN. PT SOUNDS CONGESTED WITH A NON-PRODUCTIVE COUGH. PT RESTING IN BED. WILL CONTINUE TO MONITOR.
[2018-12-29 04:30] VITALS: BP 95/45
[2018-12-29 07:40] VITALS: BP 119/51
--- NOTE | 2018-12-29 10:42 | NUR ---
ASSESSMENT COMPLETED AND DOCUMENTED. NO S/SX OF CARDIAC OR RESP DISTRESS. PT HAD STRESS ECHO DONE THIS MONRING. DISCHARGE INSTRUCTIONS GIVEN TO PT AND FAMILY. NO CONCERNS VOICED. PT DISCHARGED WITH BELONGINGS, ESCORTED OUT WITH VOLUNTEERS.
[2018-12-29 11:35] VITALS: BP 132/94
[2018-12-29 15:50] VITALS: BP 144/52
[2018-12-29 20:30] VITALS: BP 145/47
[2018-12-30 04:09] VITALS: BP 135/61
--- NOTE | 2018-12-30 05:03 | NUR ---
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 NO COMPLAINTS OF PAIN/CHEST PAIN. PRODUCTIVE COUGH. PT COMPLAINED OF SOME SOA AND WAS WHEEZING, 3L O2 GIVEN WHICH SEEMED TO HELP. PT RESTED WELL THROUGH THE NIGHT. PROGRESSING TOWARD PLAN OF CARE. WILL CONTINUE TO MONITOR.
[2018-12-30 07:30] VITALS: BP 121/47
[2018-12-30 08:11] LABS: HEMATOCRIT 28.9 % (37.0-47.0); HEMOGLOBIN 9.9 gm/dL (12.0-15.0); MCH 31.6 pg (26.0-34.0); MCHC 34.3 g/dL (28.0-37.0); MCV 92.2 fL (80.0-100.0); RBC 3.14 mil/uL (4.20-5.00); RDW 13.7 % (10.5-14.5); WBC 5.8 thou/uL (4.0-11.0)
[2018-12-30 08:20] LABS: CREATININE 0.7 mg/dL (0.6-1.0); POTASSIUM 4.1 mmol/L (3.5-5.1)
[2018-12-30 12:15] VITALS: BP 123/52
[2018-12-30 18:30] VITALS: BP 127/48
[2018-12-30 20:15] VITALS: BP 151/73
--- NOTE | 2018-12-31 03:54 | NUR ---
ASSUMED PT CARE AT 1900. PT A/OX4, OCCASIONALLY FORGETFUL AND CONFUSE WHEN AWAKEN. VITAL SIGNS STABE, ASSESSMENT CHARTED. NO COMPLAINTS OF PAIN/CHEST PAIN. FALL PRECAUTIONS MAINTAINED. RESTED WELL THROUGH THE NIGHT. PROGRESSING TOWARD PLAN OF CARE. POSSIBLE DISCHARGE IN AM. WILL CONTINUE TO MONITOR.
[2018-12-31 04:30] VITALS: BP 149/55
[2018-12-31 07:22] VITALS: BP 146/98
--- NOTE | 2018-12-31 08:42 | EKG ---
[address] [address] ELECTROCARDIOGRAM REPORT Name: GURDEEP ALLAN Room #: 205-P ADM IN M.R.#: [id number] ������������������ Admission: 12/28/18 ������������������ Attend Phys: Willian Francisco MD Discharge: ������������������ Date of : 41 Report #: [id number] ����������������������������������������������������������������� [id number] THIS REPORT FOR: //name// [facility] Test Date: 2018-12-31 Test Time: 07:54:22 Pat Name: GURDEEP ALLAN Department: Room: 205 P Gender: F Clinical Dental Technician: : 1945 Requested By: Willian Francisco Order Number: [id number] MD: Paul Arroyo Measurements Intervals [place] Rate: 41 P: 67 NV: 194 QRS: 31 QRSD: 95 T: 33 QT: 519 QTc: 429 Interpretive Statements Sinus bradycardia Compared to ECG 12/28/2018 22:08:57 Heart rate has slowed Electronically Signed On 12-31-2018 8:42:14 CONTROLLER MECHANIC by Paul Arroyo [email or web address] ��������������������������������������������� <ELECTRONICALLY SIGNED> ���������������������������������������� By: Paul Arroyo MD, [facility] ��������������������������������������������� 12/31/18 0842 D: 02/753 075 Paul Arroyo MD, FACC /EPI
--- NOTE | 2018-12-31 09:41 | 2DMMODE ---
[facility] [address] [place] [address] 2 D/M-MODE ECHOCARDIOGRAM Name: GURDEEP ALLAN Room #: 205-P ADM IN M.R.#: [id number] ������������� Admission: 12/28/18 ������������� Attend Phys: Willian Francisco, Discharge: ��� ������������� ��� Date of : 41 Date of Service: 12/31/18 0940 �� Report #: [id number] �������� ��������������������������������������������[id number] THIS REPORT FOR: //name// APPROVED REPORT Study performed: 12/31/2018 08:24:52 EXAM: Comprehensive 2D, Doppler, and color-flow Echocardiogram Patient Location: Bedside Room #: 205 Status: routine BSA: 2.05 HR: 41 bpm BP: 146/98 mmHg Rhythm: NSR, JAZMINE Other Information Study Quality: Adequate Technically limited study due to limited mobility and morbid obesity. Indications Bradycardia Dyspnea 2D Dimensions RVDd: 31.64 mm IVSd: 9.99 (7-11mm) LVOT Diam: 20.19 (18-24mm) LVDd: 48.03 mm PWd: 10.42 (7-11mm) LVDs: 34.24 (25-40mm) Aortic Root: 35.23 mm Volumes Left Atrial Volume (Systole) Single Plane 4CH: 51.17 mL Single Plane 2CH: 83.70 mL LA ESV Index: 34.00 mL/m2 Aortic Valve AoV Peak Kishan.: 1.20 m/s AO Peak Gr.: 5.75 mmHg LVOT Max P.29 mmHg LVOT Max V: 1.04 m/s CRISTIAN Vmax: 2.76 cm2 Mitral Valve [facility] [address] [place] [address] 2 D/M-MODE ECHOCARDIOGRAM Name: GURDEEP ALLAN Room #: 205-P [facility] IN ..#: [id number] ������������� Admission: 12/28/18 ������������� Attend Phys: Willian Francisco, Discharge: ��� ������������� ��� Date of : 41 Date of Service: 12/31/18 0940 �� Report #: [id number] �������� ��������������������������������������������[id number] E/A Ratio: 1.5 MV Decel. Time: 162.58 ms MV E Max Kishan.: 1.26 m/s MV A Kishan.: 0.86 m/s MV PHT: 47.15 ms IVRT: 72.66 ms Pulmonary Valve PV Peak Kishan.: 0.86 m/s PV Peak Gr.: 2.99 mmHg Pulmonary Vein P Vein S: 0.81 m/s P Vein A: 0.29 m/s P Vein D: 0.67 m/s P Vein A Dur.: 179.9 msec P Vein S/D Ratio: 1.21 Tricuspid Valve TR Peak Kishan.: 3.08 m/s RAP Estimate: 15.00 mmHg TR Peak Gr.: 38.00 mmHg PA Pressure: 53.00 mmHg Left Ventricle The left ventricle is normal size. There is normal LV segmental wall motion. There is normal left ventricular wall thickness. The overall left ventricular systolic function appears normal. LVEF is 60%. Right Ventricle The right ventricle is normal size. The right ventricular systolic function is normal. Atria Left atrium is mildly dilated. The right atrium size is normal. Aortic Valve Aortic valve is mildly calcified. No aortic regurgitation is present. There is no aortic valvular stenosis. Mitral Valve Mitral valve leaflets are mildly calcified. Mild to moderate mitral regurgitation. Tricuspid Valve The tricuspid valve is normal in structure. Mild to moderate tricuspid regurgitation. Estimated PAP is 50mmHg. [facility] [address] [place] [address] 2 D/M-MODE ECHOCARDIOGRAM Name: GURDEEP ALLAN Room #: 205-P ADM IN M.R.#: [id number] ������������� Admission: 12/28/18 ������������� Attend Phys: Willian Francisco, Discharge: ��� ������������� ��� Date of : 41 Date of Service: 12/31/18 0940 �� Report #: [id number] �������� ��������������������������������������������[id number] Pulmonic Valve Pulmonic valve is not well visualized. Great Vessels The aortic root is normal in size. Ascending aorta is not well visualized. IVC is dilated and collapses <50% with inspiration. Pericardium There is no pericardial effusion. <Conclusion> The left ventricle is normal size. LVEF is 60%. Left atrium is mildly dilated. Aortic valve is mildly calcified. Mitral valve leaflets are mildly calcified. Mild to moderate mitral regurgitation. The tricuspid valve is normal in structure. Mild to moderate tricuspid regurgitation. Estimated PAP is 50mmHg. Pulmonic valve is not well visualized. There is no pericardial effusion. ��������������������������������������������� <ELECTRONICALLY SIGNED> ���������������������������������������� By: Issac Gutiérrez MD ��������������������������������������������� 12/31/18939 9 9 Issac Gutiérrez MD /INF
--- NOTE | 2018-12-31 10:12 | NUR ---
met with patient, Roberto/Stan. She resides at Assisted living [facility]. She reports she called facility to check in herself and they reported she cannot return until they complete onsite assessment. Patient upset. Sp with Anastasia in assisted living who reports patient resides on 2nd floor of assisted living and she need to negotiate 16 steps to safety for return. Regquested Anastasia complete her onsite eval today. Therapy ordered for patient. Visited with patient and alerted therapy ordered for her for ambulation. Patient does not wear oxygen in apt, she uses a walker for ambulation. Updated RN on onsite eval and requested weaning of oxygen. RN reports likely no dc today pending cardiac testing and her heart rate elevated today. Sp with dtr to update of above, she is in agreement with plan. Reports she was unaware facility needs onsite prior to return. If patient to dc return to [facility] she is open to rec HH care. She has rec HH care via [facility] in past. Will request [facility] eval.
--- NOTE | 2018-12-31 10:31 | NUR ---
PT. RESIDES AT [facility] FAXED CLINICAL UPDATE TO FACILITY AND SPOKE WITH PIETRO IN ADM. SHE RECEIVED UPDATE. DCP TO FOLLOW.
[2018-12-31 11:30] VITALS: BP 144/58
--- NOTE | 2018-12-31 14:44 | NUR ---
Pt admitted CAP and sepsis. Pt seen due to diagnosis and extreme class III obesity of 43, currently with edema on lasix, but stable weights reported. Pt reported appetite varies - eaten 60% of lunch. Hx of type I diabetes. Pt reports challenge to follow carb controlled diet at [facility] facility, but tries to follow. Glucose ranging from 97-314, likely also aggrivated from steroids. Pt agreed to diet review at later date. Will follow up 01/01. Considered low risk at this time.
[2018-12-31 15:15] VITALS: BP 146/56
--- NOTE | 2018-12-31 19:48 | NUR ---
ASSUMED PATIENT CARE THIS AM. PATIENT TITRATED OFF OXYGEN, TOLERATING ROOM AIR. NO N/V, N/T STATED. PATIENT OFF UNIT THIS AM FOR STRESS TEST, SECOND HALF OF STRESS TEST IN AM.
[2018-12-31 21:01] VITALS: BP 146/80
--- NOTE | 2019-01-01 05:31 | NUR ---
pt resting in room thru the noc calls out appropriatly for assist up to br, no c/o pain, vss,planning to finish second 1/2 of stress test this am, will con't to monitor per ppoc.
[2019-01-01 05:56] VITALS: BP 150/67
[2019-01-01 07:45] VITALS: BP 153/62
[2019-01-01 12:45] VITALS: BP 145/54
[2019-01-01 13:22] VITALS: BP 145/54
--- NOTE | 2019-01-01 15:29 | NUR ---
Advertising Operations Coordinator spoke with [facility] senior oracle database administrator Kyung. She indicates that they are not able to do an onsite today. Clincial reviewed via phone including todays progress with PT/OT. She has accepted the pt for readmission to the [facility] and they will coordinate HH therapy f/u if ordered. Dc discussed with the attending and the pt's dtr Rosalva.HH orders faxed being faxed to Kyung per the dc traffic and transport planner. Pt's dtr will be here this afternoon to pick her up and take her back to the [facility]. Dtr advised that [facility] does not contract with their insurance plan. Should she need a snf stay in the future the pt would need to consider another facility for that service. They are hoping the pt can continue to live in the [facility]. They will work with Kyung to see if the pt can get to a first floor apt in the near future as the steps needed to get to saftey have become a challenge. Kyung indicated that a first floor apt may be an option in the future. The pt has a rwalker in place. No other needs indicated. Anca Alvarez to make the HH referral.
[2019-01-01] MEDS ORDERED: AZITHROMYCIN 2250 MG PO (15:47)
[2019-01-01] MEDS ORDERED: CEFDINIR300 MG PO (15:48)
--- NOTE | 2019-01-01 16:31 | NUR ---
PT. RESIDES AT [facility]. PT. DISCHARGING TODAY BACK TO FACILITY DCP FAXED DC ORDERS/SUMMARY TO FACILITY, LEFT MSG WITH GRACIE IN ADM. OF DC ORDERS FOR HH FAXED. THE FACILITY IS GOING TO HELP PT. FIND A HH AGENCY. FAMILY TO TRANSPORT PT. BACK TO [facility].
--- NOTE | 2019-01-01 16:40 | EKG ---
[address] [address] ELECTROCARDIOGRAM REPORT Name: GURDEEP ALLAN Room #: 205-[facility] IN M.R.#: [id number] ������������������ Admission: 12/28/18 ������������������ Attend Phys: Willian Francisco MD Discharge: 01/01/19 ������������������ Date of : 41 Report #: [id number] ����������������������������������������������������������������� [id number] THIS REPORT FOR: //name// [facility] Test Date: 2019-01-01 Test Time: 07:06:47 Pat Name: GURDEEP ALLAN Department: Room: 205 Gender: F Study Hall Supervisor: : 1945 Requested By: Jahaira Godfrey Order Number: [id number] : Rigoberto Mercado Measurements Intervals Booker Rate: 46 P: 24 OH: 153 QRS: 33 QRSD: 97 T: 33 QT: 487 QTc: 426 Interpretive Statements Sinus bradycardia Compared to ECG 12/31/2018 07:54:22 Sinus bradycardia no longer present Electronically Signed On 01-01-2019 16:40:25 REPTILE FARMER by Rigoberto Mercado [email or web address] ��������������������������������������������� <ELECTRONICALLY SIGNED> ���������������������������������������� By: Rigoberto Mercado MD ��������������������������������������������� 01/01/19 1640 5 5 Rigoberto Mercado MD /SERENITY
[2019-01-02] MEDS ORDERED: ALBUTEROL2.5 MG/31 INH (19:54)
[2019-01-02] MEDS ORDERED: NEBULIZER MISCELL (19:56)
== END 2019-01-01 16:26 | disposition home health service (06) | DRG 871 ==
LOC: ER 21:45 → EROBS 22:57 → 2N 22:57 → ENTRNSPT 01-01 16:13 → 2N 01-01 16:26
PROVIDERS: Emergency Medicine; ADMIT Family Medicine
DX: A41.9 Sepsis, unspecified organism (principal); J18.9 Pneumonia, unspecified organism; N17.9 Acute kidney failure, unspecified; Z96.642 Presence of left artificial hip joint; Z96.651 Presence of right artificial knee joint; E11.9 Type 2 diabetes mellitus without complications; E78.5 Hyperlipidemia, unspecified; R00.1 Bradycardia, unspecified; D64.9 Anemia, unspecified; R09.02 Hypoxemia; G25.81 Restless legs syndrome; Z85.41 Personal history of malignant neoplasm of cervix uteri; Z88.1 Allergy status to other antibiotic agents; Z88.2 Allergy status to sulfonamides; Z88.8 Allergy status to other drugs, medicaments and biological substances; Z79.4 Long term (current) use of insulin; Z79.82 Long term (current) use of aspirin; Z79.899 Other long term (current) drug therapy; Z90.710 Acquired absence of both cervix and uterus; Z90.49 Acquired absence of other specified parts of digestive tract; Z82.49 Family history of ischemic heart disease and other diseases of the circulatory system
CPT/HCPCS: 10081

== ENCOUNTER 2019-01-02 16:32 | Emergency (ER) | payer OTHER ==
[~2019-01-02] VITALS: Ht 165.1 cm; Wt 113.4 kg
[~2019-01-02 16:32] MED LIST changes: +ALENDRONATE SOD70 MG PO; +AZITHROMYCIN 2250 MG PO; +BIOTENE1000 ML; +CEFDINIR300 MG PO; +CLONAZEPAM 0.50.5 M1 PO; +CORTISPORIN OTI10 ML OTIC; +COZAAR 25 MG TA25 M2 PO; +CYCLOBENZAPRINE5 MG PO; +LANTUS100 UNIT/M SUBQ; +LIPITOR80 MG PO; +REQUIP4 MG PO; +TRAZODONE HCL100 MG PO; +VENLAFAXIN37.5 MG/1 PO; +VOLTAREN GEL 1100 G2
--- NOTE | 2019-01-02 17:01 | EKG ---
[place] [address] [place] [address] ELECTROCARDIOGRAM REPORT Name: SANJANAGURDEEP CHARLTON [facility] [id number] ������������������ Admission: 01/02/19 ������������������ Attend Phys: Discharge: ������������������ Date of : 41 Report #: [id number] ����������������������������������������������������������������� [id number] THIS REPORT FOR: //name// [facility] ED Test Date: 2019-01-02 Test Time: 16:39:50 Pat Name: GURDEEP ALLAN Department: Room: Gender: F Ic Design Engineer: CLEO : 1945 Requested By: Oleksandr Demarco Order Number: [id number] MD: Paul Arroyo Measurements Intervals Bryant Rate: 59 P: 61 WA: 176 QRS: 35 QRSD: 85 T: 43 QT: 410 QTc: 407 Interpretive Statements Sinus rhythm Nonspecific ST segment abnormality Compared to ECG 01/01/2019 07:06:47 Sinus bradycardia no longer present Electronically Signed On 01-02-2019 17:01:00 ORACLE ETL DEVELOPER by Paul Arroyo [email or web address] ��������������������������������������������� <ELECTRONICALLY SIGNED> ���������������������������������������� By: Paul Arroyo MD, [facility] ��������������������������������������������� 01/02/19 1701 1639 1639 Paul Arroyo MD, FACC /EPI
[2019-01-02] MEDS ORDERED: ALBUTEROL2.5 MG/31 INH (19:54)
[2019-01-02] MEDS ORDERED: NEBULIZER MISCELL (19:56)
[2019-01-02 20:16] VITALS: BP 137/54
== END 2019-01-02 20:18 | disposition home or self-care (01) ==
LOC: ER 16:32
DX: J98.01 Acute bronchospasm (principal); E11.9 Type 2 diabetes mellitus without complications; Z88.1 Allergy status to other antibiotic agents; Z88.8 Allergy status to other drugs, medicaments and biological substances; Z88.2 Allergy status to sulfonamides; Z96.642 Presence of left artificial hip joint; Z96.651 Presence of right artificial knee joint; Z79.4 Long term (current) use of insulin; Z85.41 Personal history of malignant neoplasm of cervix uteri

== ENCOUNTER 2019-07-09 09:18 | Inpatient (IN) | payer OTHER ==
[~2019-07-09] VITALS: Ht 152.4 cm; Wt 117.5 kg
[~2019-07-09 09:18] MED LIST changes: +ALBUTEROL2.5 MG/31 INH; +NEBULIZER MISCELL; -OXYBUTYNIN 5 MG5 M2 PO; +OXYCONTIN15 MG PO; -VENLAFAXIN37.5 MG/1 PO
[2019-07-09 09:26] VITALS: BP 136/60
[2019-07-09] MEDS ORDERED: LANTUS100 UNIT/M SUBQ (10:35)
[2019-07-09] MEDS ORDERED: NOVOLOG100 UNIT/1 SUBQ (10:36)
[2019-07-09] MEDS ORDERED: REMERON15 MG PO (10:37)
[2019-07-09] MEDS ORDERED: NORCO 5-325 TA1 EAC1 PO (10:38)
[2019-07-09 10:39] LABS: HEMATOCRIT 29.8 % (37.0-47.0); MCHC 33.5 g/dL (28.0-37.0); MCV 89.6 fL (80.0-100.0); RBC 3.33 mil/uL (4.20-5.00); WBC 6.7 thou/uL (4.0-11.0)
[2019-07-09] MEDS ORDERED: OTHER PHARMACY (10:39)
[2019-07-09] MEDS ORDERED: MOBIC7.5 MG PO (10:39)
[2019-07-09 10:49] LABS: ALBUMIN 4.1 g/dL (3.4-5.0); CALCIUM 10.6 mg/dL (8.5-10.1); POTASSIUM 4.4 mmol/L (3.5-5.1); TOTAL BILIRUBIN 0.4 mg/dL (<0.1-1.0); TOTAL PROTEIN 7.9 g/dL (6.4-8.2)
--- NOTE | 2019-07-09 13:34 | 2DMMODE ---
[facility] [address] [place] [address] 2 D/M-MODE ECHOCARDIOGRAM Name: SANJANAGURDEEP MCKINNON Room #: 351-P ADM IN M.R.#: [id number] Admission: 07/09/19 Attend Phys: Willian Francisco, Discharge: Date of : 41 Date of Service: 07/09/19 1333 Report #: [id number] THIS REPORT FOR: //name// APPROVED REPORT Study performed: 07/09/2019 12:32:31 EXAM: Comprehensive 2D, Doppler, and color-flow Echocardiogram Patient Location: In-Patient Room #: 351 Status: routine BSA: 2.11 HR: 76 bpm Rhythm: NSR Other Information Study Quality: Adequate 2D Dimensions RVDd: 38.26 mm IVSd: 11.48 (7-11mm) LVOT Diam: 22.14 (18-24mm) LVDd: 54.46 mm PWd: 10.48 (7-11mm) Ascending Ao: 36.95 (22-36mm) LVDs: 34.00 (25-40mm) Left Atrium: 46.74 (27-40mm) Aortic Root: 36.81 mm Volumes Left Atrial Volume (Systole) Single Plane 4CH: 48.25 mL Single Plane 2CH: 36.25 mL Aortic Valve AoV Peak Kishan.: 1.84 m/s AO Peak Gr.: 13.57 mmHg LVOT Max P.50 mmHg AO Mean Gr.: 5.86 mmHg LVOT Mean P.56 mmHg AO V2 Mean: 1.10 m/s LVOT Max V: 1.70 m/s AO V2 VTI: 36.76 cm LVOT Mean V: 1.06 m/s CRISTIAN (VTI): 4.24 cm2 LVOT V1 VTI: 40.46 cm CRISTIAN Vmax: 3.54 cm2 SV (LVOT): 155.70 mL Mitral Valve E/A Ratio: 0.8 MV Decel. Time: 308.25 ms [facility] [address] [place] [address] 2 D/M-MODE ECHOCARDIOGRAM Name: GURDEEP ALLAN Room #: 351-P [facility] IN .R.#: [id number] Admission: 07/09/19 Attend Phys: Willian Francisco, Discharge: Date of : 41 Date of Service: 07/09/19 1333 Report #: [id number] MV E Max Kishan.: 1.08 m/s MV A Kishan.: 1.37 m/s MV PHT: 89.39 ms IVRT: 131.49 ms Pulmonary Valve PV Peak Kishan.: 1.10 m/s PV Peak Gr.: 4.85 mmHg Pulmonary Vein P Vein S: 0.78 m/s P Vein A: 0.37 m/s P Vein D: 0.63 m/s P Vein A Dur.: 121.1 msec P Vein S/D Ratio: 1.24 Tricuspid Valve TR Peak Kishan.: 3.36 m/s TR Peak Gr.: 45.02 mmHg Left Ventricle Left ventricle is at the upper limits of normal. Regional wall motion is normal. Borderline concentric left ventricular hypertrophy. The overall left ventricular systolic function appears normal. LVEF is 60-65%. Grade I - abnormal relaxation pattern. Right Ventricle The right ventricle is normal size. The right ventricular systolic function is normal. Atria The left atrium size is normal. The right atrium size is normal. Aortic Valve The aortic valve is normal in structure. No aortic regurgitation is present. There is no aortic valvular stenosis. Mitral Valve The mitral valve is normal in structure. Trace mitral regurgitation. Tricuspid Valve The tricuspid valve is normal in structure. Mild tricuspid regurgitation. Estimated PAP 52 mmHg. Pulmonic Valve The pulmonary valve is normal in structure. There is no pulmonic valvular regurgitation. [address] [address] 2 D/M-MODE ECHOCARDIOGRAM Name: GURDEEP ALLAN Room #: 351-P [facility] IN M.R.#: [id number] Admission: 07/09/19 Attend Phys: Willian Francisco, Discharge: Date of : 41 Date of Service: 07/09/19 1333 Report #: [id number] Great Vessels Aortic root is mildly dilated. The ascending aorta is mildly dilated. IVC is dilated and collapses <50% with inspiration. Pericardium There is no pericardial effusion. Critical Notification Critical Value: No <Conclusion> Left ventricle is at the upper limits of normal. Borderline concentric left ventricular hypertrophy. The overall left ventricular systolic function appears normal. Grade I - abnormal relaxation pattern. The right ventricle is normal size. The left atrium size is normal. The right atrium size is normal. The aortic valve is normal in structure. Trace mitral regurgitation. Mild tricuspid regurgitation. Estimated PAP 52 mmHg. <ELECTRONICALLY SIGNED> By: Alexis Hogue MD 07/09/19 1333 1333 1333 Alexis Hogue MD /INF
--- NOTE | 2019-07-09 14:40 | NUR ---
ASSESSMENT: CM REVIEWED CHART AND MET WITH PATIENT AT THE BEDSIDE. PT WAWS ADMITTED WITH CHF/CELLULITIS. PT IS FROM [facility]. PT REPORTS SHE NORMALLY USES A WALKER FOR AMBULATION. PT REPORTS SHE PLANS ON HOPEFULLY RETURNING TO [facility] AT DISCHARGE. CM SPOKE WITH PATIENTS DAUGHTER JONATHAN TO CONFIRM INFORMATION. JONATHAN REPORTS SHE IS UNSURE THAT PATIENT HAS EVER HAD HH IN THE PAST ALTHOUGH PAST NOTES STATES [facility] WAS LOOKING INTO ARRANGING IT LAST ADMISSION. CM FAXED UPDATED INFORMATION TO [facility] TO KEEP THEM UPDATED. CM WILL CONTINUE TO FOLLOW TO ASSIST NEEDED.
[2019-07-09 16:13] VITALS: BP 128/58
--- NOTE | 2019-07-09 16:21 | EKG ---
[place] [address] [facility] [place] [address] ELECTROCARDIOGRAM REPORT Name: GURDEEP ALLAN Room #: 351-P ADM IN M.R.#: [id number] Admission: 07/09/19 Attend Phys: Willian Francisco MD Discharge: Date of : 41 Report #: [id number] THIS REPORT FOR: //name// [facility] Test Date: 2019-07-09 Test Time: 13:55:39 Pat Name: GURDEEP ALLAN Department: Room: 351 P Gender: F Button Bradder: Christopher DE LA FUENTE : 1945 Requested By: Jahaira Godfrey Order Number: [id number] MD: Paul Arroyo Measurements Intervals Niland Rate: 67 P: 56 MT: 206 QRS: 48 QRSD: 97 T: 57 QT: 413 QTc: 436 Interpretive Statements Sinus rhythm Nonspecific ST segment abnormality Compared to ECG 01/02/2019 16:39:50 No significant change was found Electronically Signed On 07-09-2019 16:20:56 CDT by Paul Arroyo [email or web address] <ELECTRONICALLY SIGNED> By: Paul Arroyo MD, [facility] 07/09/19 1620 1355 1355 Paul Arroyo MD, [facility] /EPI
--- NOTE | 2019-07-09 18:00 | NUR ---
pt adimtted from Dr office for acute CHF with BLE edema and dyspnea,and BLE cellulitis, pt is A&OX3, PT starts IV abt and iv lasix 40mg bid , new Sales catheter in place today, BLE cellulitis wounds assessment and wound care done, pt 's vs and o2sat are stable, pt has sob with activites, pt denies pain and sob at this time.
[2019-07-09 19:17] VITALS: BP 147/49
[2019-07-09 23:59] VITALS: BP 154/63
[2019-07-10] VITALS (7 sets, daily range): BP systolic 126–149; BP diastolic 39–60
[2019-07-10] MEDS ORDERED: ALBUTEROL2.5 MG/0.1 SUBQ (02:19)
[2019-07-10] MEDS ORDERED: AZELASTINE137 MCG/0. NASAL (03:01)
[2019-07-10] MEDS ORDERED: CYCLOBENZAPRINE5 MG PO (03:04)
[2019-07-10] MEDS ORDERED: FLONASE 0.05%50 MCG NASAL (03:12)
[2019-07-10] MEDS ORDERED: NEURONTIN250 MG/5 M PO (03:23)
[2019-07-10] MEDS ORDERED: AMOXICILLIN 50500 MG PO (03:30)
--- NOTE | 2019-07-10 08:08 | NUR ---
progress pt a/o x4 having restless legs awaiting med orders to be put in, vss, up with 1 to bsc or rest room gait steady. tele reading sr without any abnormalities noted. sl to rf flushes without difficulty. upset this am that she had no night time medications. in first thing this am continue poc.
[2019-07-10 09:41] LABS: HEMATOCRIT 29.3 % (37.0-47.0); HEMOGLOBIN 9.8 gm/dL (12.0-15.0); MCH 29.8 pg (26.0-34.0); MCHC 33.3 g/dL (28.0-37.0); MCV 89.5 fL (80.0-100.0); RBC 3.27 mil/uL (4.20-5.00); RDW 14.2 % (10.5-14.5); WBC 8.4 thou/uL (4.0-11.0)
[2019-07-10 09:48] LABS: CALCIUM 10.3 mg/dL (8.5-10.1); POTASSIUM 4.2 mmol/L (3.5-5.1)
--- NOTE | 2019-07-10 15:31 | NUR ---
SW reviewed chart and spoke with nursing. Pt is progressing towards goals for discharge. Discharge back to [facility] is anticipated for tomorrow. SW met with pt at bedside to discuss discharge plan. Pt states she would like HH services when she returns to [facility]. Options for HH discussed with pt. No preference voiced. Pt's PCP is Dr. Francisco. airport planner to send referral to [facility] and to notify [facility] of pt's anticipated discharge. Pt states her dtr will be able to provide transportation back to [facility]. SW is following to assist as needed with discharge planning.
--- NOTE | 2019-07-10 16:01 | NUR ---
DISCHARGE PLANNING. PATIENT RESIDES AT [facility]. PLAN IS FOR PATIENT TO RETURN TO [facility] WITH HOME HEALTH SERVICES. HOME HEALTH REFERRAL FAXED TO [facility]. CALL PLACED TO [facility]. NICOLE TO REVIEW REFERRAL AND NOTIFY CM ONCE REVIEW IS COMPLETE. UNIT SW AWARE.
--- NOTE | 2019-07-10 19:55 | NUR ---
pt is A&OX3, PT is contiuning IV abt and lasix 40mg iv bid, pt's BLE edema and cellulitis have improved.pt has slowly meeting care plan goals.
[2019-07-11 03:49] VITALS: BP 146/61
--- NOTE | 2019-07-11 04:02 | NUR ---
Patient making slow progress towards outcome goals Vital signs anf rhythm stable. Slowly diuresing. High fall risks, fall precautions in place. Uses call light appropriately for needs.
[2019-07-11 05:20] LABS: ABSOLUTE NEUTROPHILS 3.6 thou/uL (1.4-8.2); BASOPHILS 0.8 % (0.0-2.0); EOSINOPHILS 5.9 % (0.0-3.0); HEMATOCRIT 27.8 % (37.0-47.0); HEMOGLOBIN 9.2 gm/dL (12.0-15.0); LYMPHOCYTES 26.1 % (24.0-44.0); MCH 29.8 pg (26.0-34.0); MCHC 33.2 g/dL (28.0-37.0); MCV 89.7 fL (80.0-100.0); MONOCYTES 10.4 % (1.0-8.0); PLATELET COUNT 198 thou/uL (150-400); POLYS 56.8 % (36.0-66.0); RDW 14.2 % (10.5-14.5); WBC 6.3 thou/uL (4.0-11.0)
[2019-07-11 05:36] LABS: ALBUMIN 3.4 g/dL (3.4-5.0); CALCIUM 9.4 mg/dL (8.5-10.1); POTASSIUM 4.1 mmol/L (3.5-5.1); TOTAL BILIRUBIN 0.3 mg/dL (<0.1-1.0); TOTAL PROTEIN 6.6 g/dL (6.4-8.2)
[2019-07-11 07:38] VITALS: BP 123/55
[2019-07-11] MEDS ORDERED: CEFDINIR300 MG PO (08:29)
[2019-07-11] MEDS ORDERED: LASIX 20 MG TAB20 MG PO (08:30)
[2019-07-11 09:58] VITALS: BP 131/49
--- NOTE | 2019-07-11 10:16 | NUR ---
PT DISCHARGING TODAY TO [facility] FAXED DC ORDERS/SUMMARY TO FACILITY RECEIVED CONFIRMATION. DCP SPOKE WITH DTR AND SHE WILL TRANSPORT PT TO FACILITY AROUND 1430. NOTIFIED UNIT OF DC TIME. PT WILL ALSO HAVE [facility] FAXED DC ORDERS/SUMMARY RECEIVED CONFIRMATION.
--- NOTE | 2019-07-11 18:10 | NUR ---
pt is A&OX3, PT'S VS and BS are stable , pt's BLE edema and cellulitis have improved, RN has reveived dr order to d/c pt to assist living, RN has giving pt report to assist living, and pt's daughter d/c teaching, they understand well, pt's ortega catheter has removed at 1400pm, pt's daughter metal pickling equipment operator pt at 1500pm.
== END 2019-07-11 15:54 | disposition home health service (06) | DRG 602 ==
LOC: 3W 09:18
PROVIDERS: Nurse Practitioner; ADMIT Family Medicine
DX: L03.116 Cellulitis of left lower limb (principal); I50.31 Acute diastolic (congestive) heart failure; Z68.43 Body mass index [BMI] 50.0-59.9, adult; L03.115 Cellulitis of right lower limb; E11.9 Type 2 diabetes mellitus without complications; E78.5 Hyperlipidemia, unspecified; D64.9 Anemia, unspecified; I87.2 Venous insufficiency (chronic) (peripheral); Z96.642 Presence of left artificial hip joint; Z96.651 Presence of right artificial knee joint; E66.01 Morbid (severe) obesity due to excess calories; G25.81 Restless legs syndrome; Z79.82 Long term (current) use of aspirin; Z88.1 Allergy status to other antibiotic agents; Z88.2 Allergy status to sulfonamides; Z88.8 Allergy status to other drugs, medicaments and biological substances; Z82.49 Family history of ischemic heart disease and other diseases of the circulatory system; Z85.41 Personal history of malignant neoplasm of cervix uteri; Z87.81 Personal history of (healed) traumatic fracture; Z79.4 Long term (current) use of insulin; Z79.899 Other long term (current) drug therapy
CPT/HCPCS: 10779; 10879

== ENCOUNTER 2019-10-01 04:35 | Emergency (ER) | payer OTHER ==
[~2019-10-01] VITALS: Ht 157.5 cm; Wt 113.0 kg
[~2019-10-01 04:35] MED LIST changes: +ALBUTEROL2.5 MG/0.1 SUBQ; +AMOXICILLIN 50500 MG PO; +AZELASTINE137 MCG/0. NASAL; +FLONASE 0.05%50 MCG NASAL; +NEURONTIN250 MG/5 M PO; +NORCO 5-325 TA1 EAC1 PO; +NOVOLOG100 UNIT/1 SUBQ; +OTHER PHARMACY; +REMERON15 MG PO
[2019-10-01] MEDS ORDERED: TYLENOL WITH CO1 TA1 PO (05:39)
[2019-10-01 07:49] VITALS: BP 111/46
== END 2019-10-01 07:52 ==
LOC: ER 04:35
DX: S70.01XA Contusion of right hip, initial encounter (principal); S40.021A Contusion of right upper arm, initial encounter; E11.9 Type 2 diabetes mellitus without complications; I50.9 Heart failure, unspecified; Z85.41 Personal history of malignant neoplasm of cervix uteri; Z96.651 Presence of right artificial knee joint; Z88.1 Allergy status to other antibiotic agents; Z88.2 Allergy status to sulfonamides; Z88.6 Allergy status to analgesic agent; Z88.8 Allergy status to other drugs, medicaments and biological substances; Z79.4 Long term (current) use of insulin; W18.39XA Other fall on same level, initial encounter; Y92.128 Other place in nursing home as the place of occurrence of the external cause; Y93.89 Activity, other specified; Y99.8 Other external cause status

== ENCOUNTER 2019-10-29 22:15 | Observation (INO) | payer OTHER ==
[~2019-10-29] VITALS: Ht 157.5 cm; Wt 95.3 kg
[~2019-10-29 22:15] MED LIST changes: +TYLENOL WITH CO1 TA1 PO
[2019-10-29 22:16] VITALS: BP 125/42
[2019-10-29 22:52] LABS: HEMOGLOBIN 6.8 gm/dL (12.0-15.0); MCH 21.2 pg (26.0-34.0); MCHC 29.8 g/dL (28.0-37.0); RDW 19.7 % (10.5-14.5)
[2019-10-29 22:54] LABS: ABSOLUTE NEUTROPHILS 3.8 thou/uL (1.4-8.2); BASOPHILS 0.6 % (0.0-2.0); EOSINOPHILS 11.8 % (0.0-3.0); HEMATOCRIT 22.7 % (37.0-47.0); MONOCYTES 10.7 % (1.0-8.0); PLATELET COUNT 292 thou/uL (150-400); POLYS 50.9 % (36.0-66.0); WBC 7.5 thou/uL (4.0-11.0)
[2019-10-29 23:13] LABS: CALCIUM 9.4 mg/dL (8.5-10.1); CREATININE 1.3 mg/dL (0.6-1.0); POTASSIUM 4.4 mmol/L (3.5-5.1)
[2019-10-29] MEDS ORDERED: FUROSEMIDE 40 M40 MG PO (23:18)
[2019-10-29 23:34] VITALS: BP 125/42
[2019-10-29 23:49] VITALS: BP 119/39
[2019-10-30 00:11] VITALS: BP 154/116
[2019-10-30 01:44] VITALS: BP 128/47; BP 134/40; BP 138/88
--- NOTE | 2019-10-30 05:02 | NUR ---
PT TO UNIT AT 0000. SYSTEM ASSESSMENT COMPLETED. UNABLE TO OBTAIN HX DUE TO PT BEING EXTREMELY DROWSY. 1 UNIT OF BLOOD GIVEN, PT TOLERATED WELL. COMPLAINTS OF PAIN IN LEG AND ANKLE THAT IS CHRONIC. UP TO COMMODE X1, QUITE UNSTEADY ON FEET. ORIENTED X4. IV R AC FLUSHES WELL. WILL CONTINUE TO MONITOR.
[2019-10-30 05:49] LABS: % SATURATION 8 % (20-39); IRON 34 ug/dL (50-170); TIBC 432 ug/dL (250-450)
[2019-10-30 07:12] LABS: MCH 22.2 pg (26.0-34.0); MCHC 30.6 g/dL (28.0-37.0)
[2019-10-30 07:13] LABS: HEMATOCRIT 22.4 % (37.0-47.0); MCV 72.7 fL (80.0-100.0); RBC 3.08 mil/uL (4.20-5.00); WBC 6.9 thou/uL (4.0-11.0)
[2019-10-30 07:14] LABS: HEMOGLOBIN 6.8 gm/dL (12.0-15.0)
[2019-10-30 08:37] VITALS: BP 124/97
[2019-10-30 09:27] LABS: HEMATOCRIT 25.9 % (37.0-47.0); HEMOGLOBIN 7.9 gm/dL (12.0-15.0)
--- NOTE | 2019-10-30 12:10 | NUR ---
INITIAL ASSESSMENT: Pt evaluated for d/c planning needs. Reviewed chart and spoke with nurse, pt and pt's daughter. Pt was admitted to [facility] from [facility]. Dr Mejia said he plans to send pt back to [facility] today. Spoke with dtr and she is agreeable. Pt normally uses walker at facility, and has been on [facility] in the past. Spoke with SEBASTIAN Sams at [facility] and she is agreeable with plans for return, but she does not have transport available today. Chart copied. Awaiting discharge orders from physician.
[2019-10-30] MEDS ORDERED: IRON325 PO (12:12)
[2019-10-30] MEDS ORDERED: OMEPRAZOLE40 MG PO (12:15)
--- NOTE | 2019-10-30 13:42 | NUR ---
Assumed pt care this am, pt is post BT 1 unit at 4 am, initial bdraw was low at 6.8 requested for redraw at 9:15 am result is at 7.9. Pt uses the bedside commode, frequent urination noted through out the am. Pt is able to transfer and walk in the room with a gaitbelt and walker. Bilateral lowe extremity edema has been noted, pt stated this is itchy at times and this is a chronic issue. POC followed no signs or vebalizations of distress have been noted. DC orders given, report called out no nurse available to take report, left call back number. IV removed, pt is now DC.
== END 2019-10-30 13:50 ==
LOC: ER 22:15 → EROBS 23:32 → 4S 23:50
PROVIDERS: Emergency Medicine; ADMIT Internal Medicine
DX: D50.9 Iron deficiency anemia, unspecified (principal); I50.9 Heart failure, unspecified; E11.9 Type 2 diabetes mellitus without complications; Z79.4 Long term (current) use of insulin; Z79.899 Other long term (current) drug therapy

== ENCOUNTER 2020-04-02 08:25 | Inpatient (IN) | payer OTHER ==
[~2020-04-02] VITALS: Ht 157.5 cm; Wt 96.9 kg
[~2020-04-02 08:25] MED LIST changes: +FUROSEMIDE 40 M40 MG PO; +IRON325 PO; +OMEPRAZOLE40 MG PO
[2020-04-02 08:27] VITALS: BP 90/40
[2020-04-02 08:52] LABS: ABSOLUTE NEUTROPHILS 11.7 thou/uL (1.4-8.2); BASOPHILS 0.7 % (0.0-2.0); EOSINOPHILS 0.1 % (0.0-3.0); HEMATOCRIT 27.1 % (37.0-47.0); HEMOGLOBIN 8.7 gm/dL (12.0-15.0); LYMPHOCYTES 13.1 % (24.0-44.0); MCH 23.5 pg (26.0-34.0); MCV 73.3 fL (80.0-100.0); MONOCYTES 10.5 % (1.0-8.0); PLATELET COUNT 259 thou/uL (150-400); POLYS 75.6 % (36.0-66.0); RDW 18.5 % (10.5-14.5); WBC 15.5 thou/uL (4.0-11.0)
[2020-04-02 09:05] LABS: ANION GAP 10 mmol/L (7-16); BUN 28 mg/dL (7-18); CALCIUM 9.6 mg/dL (8.5-10.1); CHLORIDE 90 mmol/L (98-107); CO2 27 mmol/L (21-32); CREATININE 1.4 mg/dL (0.6-1.0); GLUCOSE 113 mg/dL (74-106); POTASSIUM 4.5 mmol/L (3.5-5.1); SODIUM 127 mmol/L (136-145)
[2020-04-02 09:10] LABS: DIRECT BILIRUBIN < 0.1 mg/dL (<0.1-0.2); SGOT 34 U/L (15-37); SGPT 24 U/L (30-65); TOTAL BILIRUBIN 0.7 mg/dL (<0.1-1.0); TOTAL PROTEIN 8.1 g/dL (6.4-8.2)
--- NOTE | 2020-04-02 10:59 | NUR ---
SPOKE WITH DAUGHTER SAID MOTHER IS MORE CONFUSED, CONCERNED OF UTI. DAUGHTER STATES NEVER HAD ISSUE WITH SOA?
[2020-04-02 11:14] LABS: URINE BILIRUBIN NEGATIVE (Negative); URINE BLOOD 1+ (Negative); URINE CLARITY CLEAR; URINE COLOR YELLOW; URINE GLUCOSE-RANDOM* NEGATIVE (Negative); URINE KETONES NEGATIVE (Negative); URINE PROTEIN (DIPSTICK) TRACE (Negative); URINE UROBILINOGEN 0.2 E.U./dl (0.2-1.0)
[2020-04-02 11:15] LABS: URINE LEUKOCYTES-REFLEX 1+ (Negative); URINE NITRITE-REFLEX POSITIVE (Negative)
[2020-04-02 11:23] LABS: SQUAMOUS 4-10 Moderate /LPF (0-3)
[2020-04-02 11:24] LABS: BACTERIA-REFLEX >30 Many /HPF (None Seen); URINE WBC-REFLEX >25 Many /HPF (0-5)
[2020-04-02 11:25] LABS: CASTS None Seen /LPF (None Seen); CRYSTALS None Seen /LPF (None Seen); URINE RBC 0-2 Rare /HPF (0-2)
[2020-04-02 12:47] VITALS: BP 104/53
[2020-04-02 12:50] VITALS: BP 104/53
[2020-04-02 13:35] VITALS: BP 148/55
[2020-04-02] MEDS ORDERED: BACLOFEN 10MG T10 MG PO (13:37)
[2020-04-02] MEDS ORDERED: FIBER TABS625 MG PO (13:40)
[2020-04-02] MEDS ORDERED: VITAMIN D310 MC2 PO (13:47)
[2020-04-02] MEDS ORDERED: FISH OIL 1,001000 M3 PO (13:49)
[2020-04-02] MEDS ORDERED: GRALISE600 MG PO (13:51)
[2020-04-02] MEDS ORDERED: NEURONTIN300 MG PO ×2 (13:52→13:53)
[2020-04-02] MEDS ORDERED: FUROSEMIDE 40 M40 M1 PO (13:55)
[2020-04-02] MEDS ORDERED: NOVOLOG100 UNIT/1 SUBQ (13:58)
[2020-04-02] MEDS ORDERED: REQUIP3 MG PO (14:05)
[2020-04-02] MEDS ORDERED: REQUIP 1 MG TABL1 M1 PO (14:05)
[2020-04-02] MEDS ORDERED: IRBESARTAN150 MG PO (14:11)
[2020-04-02 16:49] VITALS: BP 141/57
--- NOTE | 2020-04-02 18:17 | NUR ---
PATIENT ADMITTED TO ROOM AT THIS TIME. SHE IS QUITE RESTED AT THE MOMENT. NOTED TO HAVE PYREXIA AND TYLENOL ADMININSTERED. IT WAS EFFECTIVE FEVER RESOLVED. NOTED HIGH DDIMER. NOTIFIED NEW ORDERS. SHE IS CONFUSED AT THE MOMENT AND WILL NOT ANSWER QUESTIONS. AT TIMES IT WILL ONLY BE THE YES OR NO REGARDLESS OF NATURE OF QUESTION. VITALS REMAIN WNL. WILL CONT WITH PLAN OF CARE.
[2020-04-02 20:14] VITALS: BP 140/58
[2020-04-03] VITALS: BP 142/76
[2020-04-03 04:19] VITALS: BP 162/54
--- NOTE | 2020-04-03 04:56 | NUR ---
RECIEVED CARE OF THIS PATIENT AT 1900. PATIENT ALERT AND ORIENTED TO SELF AND PLACE. DOES NOT KNOW WHY SHEIS HERE OR WHAT TIME OF DAY IT WAS OR WHAT TIME OF YEAR. PATIENT INC OF B&B. HAD TEMP OF 99.5 AT 2014. AT MIDNIGHT IT WAS 100.4. TYLENOL GIVEN. AT 0100 IT WAS 101.0. ICE APPLIED TO GROIN AND FAN TURNED ON. AT 0130 TEMP WAS 100.3. AT O419 TEMP WAS DOWN TO 99.7. DR ULLOA WAS INFORMED OF TEMP AND OF + BLOOD CULTURES. ORDER RECEIVED TO CONSULT DR RICO IN AM. DENEID PAIN. SLEPT MOST OF NIGHT.
[2020-04-03 07:48] VITALS: BP 143/59
--- NOTE | 2020-04-03 10:53 | NUR ---
PATIENT RESTING IN BED C/O PAIN WANTS TO URINATE BLADDER SCAN DONE 571CC WITH PATIENT MOVING ALL AROUND JESUS CATH PUT IN WITH IMMEDIATE RETURN OF DARK YELLOW URINE WITH SLIGHT ODOR 1100 ML CALL TO SANDY KHAN WHO GAVE ORDER TO LEAVE CATH IN. PT HAD COVID 19 TEST DONE AND SPECIMEN TO LAB WAS TEST #2 FIRST WAS NEGATIVE. PT GIVEN PRN PAIN MED AND IS RESTING COMFORTABLY IV ABT'S INFUSING ORDERED. NELI LE US VENOUS DOPPLER DONE. SPOKE WITH DAUGHTER ABOUT PATIENT'S CONDITION.
--- NOTE | 2020-04-03 11:12 | NUR ---
CALLED CONSULT FOR DR SOTO / PULMONARY [phone] AT THIS TIME REASON FOR CONSULT HYPOXIA WITH POSITIVE D DIMER, CALLED HIS ANSWERING SERVICE AWAITING CALL BACK.
--- NOTE | 2020-04-03 11:16 | HC ---
[facility] [place] [address] CONSULTATION Name: GURDEEP ALLAN Room #: 361-P ADM IN M.R.#: [id number] Admission: 04/02/20 Attend Phys: Roc Mejia MD Discharge: Date of : 41 Report #: [id number] THIS REPORT FOR: cc: Roc Mejia MD,Roc Louise,Last Pratt MD ~ CC: Roc Mejia DATE OF SERVICE: 04/03/2020 INFECTIOUS DISEASE CONSULTATION ATTENDING PHYSICIAN: Dr. Mejia. REASON FOR EVALUATION: Gram-negative septicemia, likely secondary to urinary tract infection. HISTORY OF PRESENT ILLNESS: Chart reviewed, patient examined. This is a 74-year-old woman with fairly significant medical history including diabetes mellitus, has cardiomyopathy with congestive heart failure, who was admitted from the nursing facility with complaints of fever, dyspnea, apparently have been following and was felt to be quite weak as well. Did have associated cough, was found to have oxygen saturations in the 80s. She is at least mildly encephalopathic, does admit some GI related discomfort. She is unaware of fevers, admits to chills and shakes, although her temperature on admission was 103. Initial chest x-ray was unremarkable. Screening coronavirus-19 PCR was negative. Urinalysis did, however, show marked pyuria. Now blood culture with growth of gram-negative jackson. She was empirically started on therapy with a dose of ceftriaxone. ALLERGIES: LISTED TO LISINOPRIL, BACTRIM, CIPRO, METFORMIN, ZOLPIDEM. CURRENT MEDICATIONS: Include ceftriaxone, cholecalciferol, venlafaxine, losartan, atorvastatin, pantoprazole, ropinirole, trazodone, enoxaparin, p.r.n. analgesics, antiemetics, baclofen. PAST MEDICAL HISTORY: As noted above, diabetes mellitus type 2, history of cardiomyopathy with congestive heart failure, anemia, history of urinary tract infection. SOCIAL HISTORY: Nonsmoker, no ethanol, no illicit drug use. FAMILY HISTORY: Noncontributory. REVIEW OF SYSTEMS: Limited due to her encephalopathy. [facility] [address] [place] [address] CONSULTATION Name: GURDEEP ALLAN Room #: 361-P [facility] IN ..#: [id number] Admission: 04/02/20 Attend Phys: Roc Mejia MD Discharge: Date of : 41 Report #: [id number] PHYSICAL EXAMINATION: GENERAL: She appears chronically ill, undernourished. She has got some generalized edema. VITAL SIGNS: T-max of 103 yesterday, 101 overnight and temperature 98.9 this a.m., pulse 75, respirations 20, blood pressure 143/59. SKIN: Warm, dry, no rashes. HEENT: Normocephalic. Extraocular muscles intact. NECK: Supple. LUNGS: Few scattered coarse breath sounds. HEART: Regular. She does have a soft systolic murmur. ABDOMEN: Distended, somewhat firm. There are no overt peritoneal signs. Does not appear to be significantly tender. EXTREMITIES: Distal lower extremity edema. GENITOURINARY AND RECTAL: Deferred. LABORATORY DATA: Blood cultures as described above, gram-negative jackson negative. Negative coronavirus. Lactic acid initially 2.2, repeat was 1.4. Electrolytes: Sodium 127, potassium 4.5, chloride 90, bicarbonate is 27, anion gap of 10, BUN and creatinine 28 and 1.4. LFTs unremarkable. Albumin of 4.0, total protein of 8.1. CBC: White count of 15.5, H and H 8.7 and 27.1, MCV of 73.3. ASSESSMENT AND PLAN: Gram-negative septicemia, likely on a basis of genitourinary tract source. Plan on a repeat coronavirus testing to exclude that degree of false negatives. Continue gram-negative coverage. We will broaden therapy given she is in a facility and there is a risk of ESBL. Does have some hypersensitivities as well. She appears quite tenuous at this point. Incentive spirometry is unclear. We will eventually add that ideally. Continue to monitor expectantly. Certainly at risk for additional nosocomial complications including infections. We will follow. <ELECTRONICALLY SIGNED> By: Last Louise MD 04/03/20 1116 0849 0900 Last Louise MD /nt
--- NOTE | 2020-04-03 13:00 | NUR ---
PATIENT SLEEPNG AT THIS TIME. BLOOD SUGARS CHECKED AND INSULIN ORDERED. PT STATES WANTS LUNCH LATER.
--- NOTE | 2020-04-03 16:29 | NUR ---
DR BAUER HERE FOR PULMONARY WAS CONSULT FOR DR SOTO IN COMPUTER.
--- NOTE | 2020-04-03 18:13 | NUR ---
PT IS TALKING ON PHONE TO HER DAUGHTER JONATHAN THIS NURSE GAVE DAUGHTER UPDATE. JESUS CATH BAG EMPTIED. ROOM TIDED AND LINED TAKEN OUT OF ROOM WITH TRASH. PT STATES NO PAIN NO RESP DISTRESS NOTED. PT'S APPETITE IMPROVING. FLUIDS ENCOURAGED.
[2020-04-03 20:10] VITALS: BP 144/70
--- NOTE | 2020-04-03 20:49 | NUR ---
PT SEEN, REALLY CONFUSED UNORIENTED TO EVERYTHING,. CANNOT RETAIN INFORMATION. SECOND COVID RESULT CAME BACK NEGATIVE. DR. KHAN'S ANSWERING SERVICE NOTIFIED. RIGGING LOFT REPAIRER CARMELLA NOTIFIED. DR.GEHA GASCA'S ANSWERING SERVICE NOTIFIED WELL. WILL SEE WHAT HAPPENS
--- NOTE | 2020-04-04 02:29 | NUR ---
PT WAS SEEN TODAY, FROM THE GET GO, PT WORE AN ANXIOUS, SCARED LOOK ON HER FACE. WHEN ASKED WHATS WRONG, PT STATED THAT SHE WANTED TO GO HOME. PT WAS VERY RESTLESS OF THE ARMS AND LEGS. PT ALSO COULDN'T FINISH HER THOUGHTS, OFTEN STATING CAN YOU.... OR I WANT TO... WHEN ASKED TO [facility] SELF, PT COULD NOT. VS WERE STABLE. ALL MEDS WERE ADMINISTERED. SECOND COVID RESULT CAME BACK, GAMEPLAY ENGINEER, MD, ID, AND PAINT ROLLER COVER MACHINE SETTER NOTIFIED. AWAITING CALL BACK FOR PROGRESS. WILL CONTINUE TO MONITOR.
[2020-04-04 04:45] VITALS: BP 173/65
[2020-04-04 07:59] VITALS: BP 171/75
[2020-04-04 08:09] LABS: HEMATOCRIT 23.1 % (37.0-47.0); HEMOGLOBIN 7.4 gm/dL (12.0-15.0); MCH 24.1 pg (26.0-34.0); MCHC 32.2 g/dL (28.0-37.0); MCV 74.8 fL (80.0-100.0); RBC 3.08 mil/uL (4.20-5.00); RDW 18.7 % (10.5-14.5)
[2020-04-04 08:19] LABS: CALCIUM 8.3 mg/dL (8.5-10.1); POTASSIUM 4.4 mmol/L (3.5-5.1)
[2020-04-04 12:40] VITALS: BP 151/75
[2020-04-04 15:35] VITALS: BP 162/72
--- NOTE | 2020-04-04 16:06 | NUR ---
PT KNOWS HER NAME AND BIRTHDAY, PT CAN FOLLOW MOST OF CONMMANDS, BUT PT IS CONFUSED AT TIME, SHE IS FALL RISK, PT 'S VS ARE STABLE, PT IS CONTINIUNG O2 2L/MIN/NC TO KEEP O2SAT 95-98%, PT DENIES PAIN AND SOB AT THIS TIME.
--- NOTE | 2020-04-04 16:46 | NUR ---
PT'S SECOND COVID WAS NEGAIVE FROM 04/03/20 TEST, BUT PT HAD FEVER AT 04/02/20, SO PT NEEDS KEEPING ISOLATION AND WE NEEDS TO MONITOR PT'S VS , PT CAN BE OFF ISOLATION UNTILL PT DOES NOT HAVE FEVER MORE THEN 24HR PER HOSPITAL PROTOCOL.
--- NOTE | 2020-04-04 19:26 | NUR ---
PT DOES NOT HAVE FEVER MORE THEN 24HR, PT IS OFF COVID ISOLATION NOW.
--- NOTE | 2020-04-04 19:27 | NUR ---
PT DOES NOT HAVE FEVER MORE THEN 24HR , PT 'S COVID TESTS ARE NEGATIVE, PT IS OFF ISOLATION AND PT WILL TRANSFER TO MD PER ORDER, RN HAS NOTIFIED PT'S DAUGHTER.
[2020-04-04 20:35] VITALS: BP 157/48
[2020-04-04 23:36] VITALS: BP 144/68
--- NOTE | 2020-04-04 23:37 | NUR ---
ASSUMED CARE AT 1900. PT C/O LEG PAIN DESPITE NORCO AT 1845. DENIED NAUSEA OR SOB. ALERT TO SELF, SLOW TO ANSWER QUESTIONS, AND WOULD LOSE TRAIN OF THOUGHT. HS MEDS AND ABX GIVEN. JESUS DRAINING LIGHT YELLOW URINE. OBTAINED ORDERS TO TRANSFER TO M/S; REPORT GIVEN TO GABI PECK AND TRANSFERRED BY BED AT 2315, PT IN STABLE CONDITION.
--- NOTE | 2020-04-05 03:00 | NUR ---
ASSUMED CARE OF PT AT 2315 HRS FROM 3W. PT AOX1 AND FALL PRECAUTION IN PLACE. PT DENIED ANY SIGNIFOCANT PAIN, NAUSEA OR SOA. PT IS ON 2L O2 VIA NC. JESUS IS PATIENT AND IS DRAINING CLEAR/YELLOW URINE. PT WAS ABLE TO GET COMFORTABLE AND SLEEP PART OF THE SHIFT. VSS AND NO S/S OF ACUTE DISTRESS. WILL CONTINUE TO MONITOR FOR CHANGES.
[2020-04-05 04:08] VITALS: BP 126/63
[2020-04-05 07:16] VITALS: BP 148/57
--- NOTE | 2020-04-05 13:42 | NUR ---
VASCULAR ACCESS TEAM CONSULTED FOR PICC PLACEMENT. PT'S LABS,MEDS,HISTORY,ORDER AND CONSENT VERIFIED. PT CONFUSED AND HAD DIFFICULTY HOLDING STILL FOR PROCEDURE. ESTEFANY BRACHAIAL WAS WIDELY PATENT WITH USG. 4FR SL POWER PICC TRIMMED TO 38CM INSERTED TO 1CM EXTERNAL. STAT CXR ORDERED. PT TOLERATED WELL. GAUZE APPLIED TO SITE FOR BLEEDING. COBAN LOOSELY APPLIED DUE TO PT CONFUSION.
[2020-04-05 15:07] VITALS: BP 140/58
--- NOTE | 2020-04-05 15:57 | NUR ---
PT IS FROM [facility] FAXED CLINICAL UPDATE RECEIVED CONFIRMATION AND LEFT MSG WITH KATHIE IN ADM. DP TO FOLLOW.
--- NOTE | 2020-04-05 16:41 | NUR ---
PT ADMITTED RELATED TO SEPSIS; BACTEREMIA; UTI; ELEVATED D-DIMER. CM REVIEWED CHART AND SPOKE WITH CARE TEAM. CM ATTEMPTED PC TO TO AT BEDSIDE THIS DAY NO ANSWER. CM CALLED AND SPOKE WITH PT'S DTR. SHE INDICATED PT RESIDES IN LTC A [facility]. SHE INDICATED PLAN IS FOR PT TO RETURN THERE ONCE MEDICALLY STABLE. AGREEABLE WITH SKILLED IF APPROPRIATE. CM FAXED REFERRAL TO [facility]. CM TO FOLLOW INDICATED WITH DC PLANNING.
[2020-04-05 19:20] VITALS: BP 142/47
--- NOTE | 2020-04-05 19:35 | NUR ---
Assessment completed.Vss. Pt in and out of bed for activities today.Assisted with tray setup at all meals.Poor appetite.Pt tolerated meds.Pt has large bm x2 today.Pericare given.Picc line place by iv teal later this evening.Pt has severe restless leg syndrome.Scheduled med given early this evening with relief.pt dtr updated.Report off to melodie westbrook.
--- NOTE | 2020-04-06 05:35 | NUR ---
ASSUMED CARE PF PT AT 1900HRS. PT AOX1-2 AND NEEDS MUST BE AANTICIPATED. FALL PRECAUTION IN PLACE. JESUS IN PLACE AND IS PATIENT. ABX TREATMENT CONTINUED. PT WAS ABLE TO GET COMFORTABLE AND SLEEP PART OF THE SHIFT. VSS AND NO S/S OF ACUTE DISTRESS. WILL CONTINUE TO MONITOR.
[2020-04-06 07:21] VITALS: BP 182/50
[2020-04-06 15:14] VITALS: BP 146/54
--- NOTE | 2020-04-06 16:12 | NUR ---
SPOKE WITH GRACIE FROM [facility] THEY WILL ACCEPT PT FOR SKILLED STAY WITH IV ABX. DP TO FOLLOW.
--- NOTE | 2020-04-06 16:30 | NUR ---
[facility] SKILLED ONCE MEDICALLY STABLE. CM TO FOLLOW INDICATED WITH DC PLANNING.
--- NOTE | 2020-04-06 20:12 | NUR ---
PT A&OX2, VSS, NO COMPLAINT OF PAIN. PICC IN RIGHT UPPER ARM. LOOSE STOOLS TODAY. STOOL SAMPLE SENT TO RULE OUT CDIFF. NO SIGNS OF DISTRESS .WILL CONTINUE TO MONITOR.
[2020-04-06 20:44] VITALS: BP 166/40
[2020-04-07 03:34] VITALS: BP 156/56
--- NOTE | 2020-04-07 03:42 | NUR ---
ASSUMED CARE ON 04/06/20 @ 19:30, IN BED A&OX2 TO PERSON AND PLACE. ALLERGIES: SULFAMETHOXAZOLE (FROM BACTRIM), TRIMETHOPRIM (FROM BACTRIM), CIPROFLOXACIN, ZOLPIDEM (FROM AMBIEN), METFORMIN. R UPPER ARM, PICC LINE, SINGLE LUMEN. BM ON 04/07, FORMED WITH STRONG ODOR. INCONTINENT.
[2020-04-07 04:52] LABS: HEMATOCRIT 22.5 % (37.0-47.0); HEMOGLOBIN 7.2 gm/dL (12.0-15.0); MCH 23.8 pg (26.0-34.0); MCHC 31.9 g/dL (28.0-37.0); MCV 74.6 fL (80.0-100.0); RBC 3.02 mil/uL (4.20-5.00); RDW 18.4 % (10.5-14.5); WBC 6.5 thou/uL (4.0-11.0)
[2020-04-07 05:16] LABS: ALBUMIN 2.8 g/dL (3.4-5.0); CALCIUM 8.8 mg/dL (8.5-10.1); CREATININE 0.8 mg/dL (0.6-1.0); POTASSIUM 3.6 mmol/L (3.5-5.1); TOTAL BILIRUBIN 0.2 mg/dL (0.2-1.0); TOTAL PROTEIN 6.3 g/dL (6.4-8.2)
[2020-04-07 07:58] VITALS: BP 149/56
--- NOTE | 2020-04-07 12:12 | NUR ---
PT A&O TO SELF, VSS, DENIES PAIN. PATIENT CONTINUES TO HAVE LOOSE STOOLS. PATIENT ON CONTACT PRECAUTION TO RULE OUT CDIFF, RESULTS PENDING. PICC UPPER RIGHT ARM PATENT. PATIENT PARTICIPATING IN PHYSICAL THERAPY. NO SIGNS OF DISTRESS. WILL CONTINUE TO MONITOR.
[2020-04-07] MEDS ORDERED: CEFTRIAXON1 GM/50 ML IV (14:28)
[2020-04-07] MEDS ORDERED: NORCO 5-325 TA1 EAC1 PO (14:29)
[2020-04-07] MEDS ORDERED: BUSPIRONE HCL5 MG PO (14:29)
--- NOTE | 2020-04-07 15:19 | NUR ---
PT DISCHARGING TODAY TO [facility] FAXED DC ORDERS/SUMMARY SPOKE WITH GRACIE IN ADM SHE RECEIVED ORDERS TRANSPORT ARRANGED WITH [facility] FOR 1630 TODAY. NOTIFIED PT'S DTR (JONATHAN) OF DC AND TIME OF TRANSPORT. UNIT NOTIFIED AND CHART COPY PER US. RN TO CALL REPORT TO [phone].
--- NOTE | 2020-04-07 15:20 | NUR ---
CARE TEAM INDICATED THAT PT IS MEDICALLY STABLE TO [place] SKILLED TO [facility] THIS DAY. CHART COPY ORDERED. ORDERS FAXED. [facility] ARRANGED FOR 1630. PT, UNIT, AND DTR ARE AWARE AND AGREEABLE. REPORT TO BE CALLED TO . NO OTHER CM INTERVETNION INDICATED. CASE CLOSED.
== END 2020-04-07 16:15 | DRG 871 ==
LOC: ER 08:25 → EROBS 11:45 → 4W 11:45 → 3W 11:45 → 4W 04-04 23:20
PROVIDERS: Emergency Medicine; ADMIT Internal Medicine
PROC: 02HV33Z Insertion of Infusion Device into Superior Vena Cava, Percutaneous Approach (ICD-10-PCS; principal; 2020-04-05)
DX: A41.51 Sepsis due to Escherichia coli [E. coli] (principal); G93.41 Metabolic encephalopathy; J18.9 Pneumonia, unspecified organism; R65.21 Severe sepsis with septic shock; E43 Unspecified severe protein-calorie malnutrition; N39.0 Urinary tract infection, site not specified; E87.1 Hypo-osmolality and hyponatremia; I42.9 Cardiomyopathy, unspecified; N12 Tubulo-interstitial nephritis, not specified as acute or chronic; J98.11 Atelectasis; A41.50 Gram-negative sepsis, unspecified; D64.9 Anemia, unspecified; Z96.649 Presence of unspecified artificial hip joint; Z96.659 Presence of unspecified artificial knee joint; R33.9 Retention of urine, unspecified; Z20.828 Contact with and (suspected) exposure to other viral communicable diseases; N28.9 Disorder of kidney and ureter, unspecified; I50.9 Heart failure, unspecified; E66.01 Morbid (severe) obesity due to excess calories; B96.20 Unspecified Escherichia coli [E. coli] as the cause of diseases classified elsewhere; E11.9 Type 2 diabetes mellitus without complications; Z09 Encounter for follow-up examination after completed treatment for conditions other than malignant neoplasm; Z87.81 Personal history of (healed) traumatic fracture; Z85.41 Personal history of malignant neoplasm of cervix uteri; Z88.3 Allergy status to other anti-infective agents; Z88.2 Allergy status to sulfonamides; Z88.8 Allergy status to other drugs, medicaments and biological substances; Z90.49 Acquired absence of other specified parts of digestive tract; Z82.49 Family history of ischemic heart disease and other diseases of the circulatory system
CPT/HCPCS: 10040; 10047; 10879; 27000

== ENCOUNTER 2020-05-15 10:21 | Emergency (ER) | payer OTHER ==
[~2020-05-15] VITALS: Ht 157.5 cm; Wt 88.5 kg
[~2020-05-15 10:21] MED LIST changes: +BACLOFEN 10MG T10 MG PO; +BUSPIRONE HCL5 MG PO; +CEFTRIAXON1 GM/50 ML IV; +FIBER TABS625 MG PO; +FISH OIL 1,001000 M3 PO; +FUROSEMIDE 40 M40 M1 PO; +GRALISE600 MG PO; +IRBESARTAN150 MG PO; +NEURONTIN300 MG PO; +REQUIP 1 MG TABL1 M1 PO; +REQUIP3 MG PO; +VITAMIN D310 MC2 PO
[2020-05-15 11:51] VITALS: BP 148/59
[2020-05-15 12:03] LABS: HEMATOCRIT 35.5 % (37.0-47.0); HEMOGLOBIN 11.5 gm/dL (12.0-15.0); MCH 26.8 pg (26.0-34.0); MCHC 32.5 g/dL (28.0-37.0); MCV 82.6 fL (80.0-100.0); PLATELET COUNT 164 thou/uL (150-400); RDW 25.4 % (10.5-14.5)
[2020-05-15 12:08] LABS: ANION GAP 5 mmol/L (7-16); BUN 16 mg/dL (7-18); CALCIUM 9.6 mg/dL (8.5-10.1); CHLORIDE 96 mmol/L (98-107); CO2 31 mmol/L (21-32); GLUCOSE 236 mg/dL (74-106); POTASSIUM 4.3 mmol/L (3.5-5.1); SODIUM 132 mmol/L (136-145)
[2020-05-15 12:18] LABS: ALBUMIN 3.5 g/dL (3.4-5.0); DIRECT BILIRUBIN < 0.1 mg/dL (<0.1-0.2); SGOT 24 U/L (15-37); SGPT 22 U/L (30-65); TOTAL BILIRUBIN 0.3 mg/dL (0.2-1.0); TOTAL PROTEIN 7.5 g/dL (6.4-8.2); TROPONIN-I <0.06 ng/mL (<0.06)
[2020-05-15 12:31] LABS: ABSOLUTE NEUTROPHILS 3.4 thou/uL (1.4-8.2); ANISOCYTOSIS SLIGHT; PLATELET ESTIMATE NORMAL
--- NOTE | 2020-05-16 08:12 | EKG ---
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: [facility] : 1945 Requested By: Tran Chawla Order Number: [id number] MD: Paul Arroyo Measurements Intervals [place] Rate: 72 P: 54 ME: 187 QRS: 32 QRSD: 89 T: 58 QT: 374 QTc: 410 Interpretive Statements Sinus rhythm No significant abnormality Compared to ECG 07/09/2019 13:55:39 No significant change was found Electronically Signed On 05-16-2020 8:11:53 CDT by Paul Arroyo [email or web address] <ELECTRONICALLY SIGNED> By: Paul Arroyo MD, FACC 05/16/20 0811 1222 1222 Paul Arroyo MD, [facility] /EPI
== END 2020-05-15 16:02 | disposition home or self-care (01) ==
LOC: ER 10:21
PROVIDERS: Emergency Medicine
DX: R29.6 Repeated falls (principal); G89.29 Other chronic pain; M25.552 Pain in left hip; R26.9 Unspecified abnormalities of gait and mobility; E11.9 Type 2 diabetes mellitus without complications; I50.9 Heart failure, unspecified; Z79.4 Long term (current) use of insulin; Z79.899 Other long term (current) drug therapy; Z88.1 Allergy status to other antibiotic agents; Z88.8 Allergy status to other drugs, medicaments and biological substances; Z88.2 Allergy status to sulfonamides

== ENCOUNTER 2021-09-26 17:58 | Emergency (ER) | payer OTHER ==
[~2021-09-26] VITALS: Ht 157.5 cm; Wt 124.3 kg
--- NOTE | ~2021-09-26 | EMS ---
[address] [address] EMS Patient Care Report Name: GURDEEP ALLAN Room #: DEP LUANN Cabello#: [id number] Admission: 09/26/21 Attend Phys: Discharge: 09/27/21 Date of : 43 Report #: [id number] THIS REPORT FOR: //name// Report Transmitted: 09/28/2021 10:46 EMS Care Summary [place], [place]/[facility] Incident [id number] @ 09/26/2021 17:19 Incident Location [address] [place] [address] Patient GURDEEP ALLAN Female, 76 Years 1945 Patient Address [address] [place] [address] Patient History Congestive Heart Failure (CHF),Hypertension (HTN),Hyperlipidemia,Gastro-Esophageal Reflux Disease (GERD),Morbid Obesity,Anxiety Disorder (Panic Attacks),Anxiety,Type 2 Diabetes, Patient Allergies Lisinopril,Cipro,Trimethoprim,Zolpidem,Metformin, Patient Medications Buspirone, Acetaminophen, Gabapentin, Humalog, Furosemide, Oxycodone, Chief Complaint FALL W INJURIES Disposition Transported No Lights/[place] Dispatch Reason Falls Transported To [facility] Narrative M41 DISPATCHED TO A FALL WITH P36. M41 AOS AND FOUND A FEMALE PT LYING ON HER BACK AT A NH. PT WAS WITH AR STAFF. [address] [address] EMS Patient Care Report Name: GURDEEP ALLAN Room #: DEP [facility]#: [id number] Admission: 09/26/21 Attend Phys: Discharge: 09/27/21 Date of : 43 Report #: [id number] STAFF STATES THAT SHE HAD AN UNWITNESSED FALL AND HIT HER HEAD. PT IS NOT ON BLOOD THINNERS. PT DENIES ANY HEAD OR NECK PAIN. PT DOES HAVE A SMALL LACERATION ON THE BACK OF HER HEAD WHICH IS DIFFICULT TO LOCATE DUE TO PTS HAIR. PTS HEAD WAS BANDAGED. THE PT DENIES LOSS OF CONSCIOUSNESS. PTS ONLY COMPLAINT IS R KNEE PAIN. PT STATES SHE HAS FALLEN TWICE TODAY AND DID NOT INJURE HERSELF DURING THOSE FALLS. PT DENIES ANY OTHER COMPLAINTS. PT DENIES CP, SOA, DIZZINESS, NV, ABD PAIN. PT MOVED TO A [place] AND TO THE COT. PT MOVED TO THE AMBULANCE. VITALS OBTAINED. PT PLACED ON 4LPM O2 NC. PTS SATS IMPROVED. 4 LEAD OBTAINED. BGA OBTAINED. M[address] [facility]. EN ROUTE PT REMAINED STABLE. REPORT GIVEN TO GABI CRUZ. SIGNATURES OBTAINED. TRANSFER OF CARE TOOK PLACE. M41 IN SERVICE. 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 Initial Vitals @17:42P: 79,R: 20,BP: 138/70,CO: 1,SpO2: 96, @17:43P: 89,R: 35,SpO2: 97,MN Suspected: false @17:51P: 85,R: 41,CO: 0,SpO2: 99, @17:37P: 76,CO: 3,SpO2: 83, @17:41P: 87,R: 32,CO: 1,SpO2: 94, @17:51P: 87,R: 22,BP: 133/66,Pain: 4/10,GCS: 15,SpO2: 100,Revised Trauma: 12, @17:37P: 90,R: 22,BP: 154/69,Pain: 4/10,GCS: 15,Glucose: 127,SpO2: 86,Revised Trauma: 12, Assessments @17:28MENTAL:Person Oriented,Time Oriented,Event Oriented,Place Oriented,SKIN:HEENT:Head/Face: Other,Neck/Airway: No Abnormalities,LUNG SOUNDS:General: No Abnormalities,ABDOMEN:General: No Abnormalities,PELVIS//GI:No Abnormalities,EXTREMITIES:Capillary Refill: Right Upper: < 2 Sec,Right Leg: Other,Left Arm: No Abnormalities,Right Arm: No Abnormalities,Left Leg: No Abnormalities,PULSE:Radial: 2+ Normal,NEURO:No Abnormalities, Impression Laceration/Abrasion/Hematoma (minor surface trauma) Procedures [address] [address] EMS Patient Care Report Name: SANJANAGURDEEP Room #: DEP LUANN Cabello#: [id number] Admission: 09/26/21 Attend Phys: Discharge: 09/27/21 Date of : 41 Report #: [id number] @17:28 ALS Assessment Response: UnchangedSucceeded @17:38 3-Lead ECG Response: UnchangedSucceeded @17:36 Oxygen FlowRate: 5 Device: Nasal Cannula (NC) Response: ImprovedSucceeded @17:39 Bandaging Response: UnchangedSucceeded Timeline 17:17,Call Received 17:17,Dispatch Notified 17:19,Dispatched 17:19,En Route 17:25,On Scene 17:28,At Patient 17:28,ALS Assessment,Response: UnchangedSucceeded, 17:36,Oxygen FlowRate: 5 Device: Nasal Cannula (NC) Response: ImprovedSucceeded, 17:37,BP: 154/69 M,PULSE: 90,RR: 22 R,SPO2: 86 Ox,ETCO2: ,B,PAIN: 4,GCS: 15, 17:37,BP: / M,PULSE: 76,RR: R,SPO2: 83 Ox,ETCO2: ,BG: ,PAIN: ,GCS: , 17:38,3-Lead ECG,Response: UnchangedSucceeded, 17:39,Bandaging,Response: UnchangedSucceeded, 17:41,BP: / M,PULSE: 87,RR: 32 R,SPO2: 94 Ox,ETCO2: ,BG: ,PAIN: ,GCS: , 17:42,Depart Scene 17:42,BP: 138/70 M,PULSE: 79,RR: 20 R,SPO2: 96 Ox,ETCO2: ,BG: ,PAIN: ,GCS: , 17:43,BP: / M,PULSE: 89,RR: 35 R,SPO2: 97 Ox,ETCO2: ,BG: ,PAIN: ,GCS: , 17:51,BP: / M,PULSE: 85,RR: 41 R,SPO2: 99 Ox,ETCO2: ,BG: ,PAIN: ,GCS: , 17:51,BP: 133/66 M,PULSE: 87,RR: 22 R,SPO2: 100 Ox,ETCO2: ,BG: ,PAIN: 4,GCS: 15, 17:54,At Destination 18:09,Call Closed Disclaimer v1.1 Copyright 2020 [employer] This EMS Care Summary contains data elements from the applicable legal record (which may be displayed differently). It is designed to provide pertinent information for the following purposes: continuity of care, clinical quality, and state data reporting. The complete legal record is available to ED staff and administrators of the receiving hospital in [facility]'s Patient Tracker. All data is provided "as is."
[2021-09-27 00:06] VITALS: BP 167/64
== END 2021-09-27 00:07 ==
LOC: ER 17:58
DX: S01.01XA Laceration without foreign body of scalp, initial encounter (principal); E11.9 Type 2 diabetes mellitus without complications; I50.9 Heart failure, unspecified; Z98.890 Other specified postprocedural states; Z79.51 Long term (current) use of inhaled steroids; Z79.891 Long term (current) use of opiate analgesic; Z79.899 Other long term (current) drug therapy; Z79.4 Long term (current) use of insulin; Z79.1 Long term (current) use of non-steroidal anti-inflammatories (NSAID); Z88.6 Allergy status to analgesic agent; Z88.1 Allergy status to other antibiotic agents; Z88.5 Allergy status to narcotic agent; Z88.2 Allergy status to sulfonamides; Z88.8 Allergy status to other drugs, medicaments and biological substances; W07.XXXA Fall from chair, initial encounter; Y93.89 Activity, other specified; Y92.89 Other specified places as the place of occurrence of the external cause; Y99.8 Other external cause status

== ENCOUNTER 2021-10-16 14:03 | Inpatient (IN) | payer OTHER ==
[~2021-10-16] VITALS: Ht 152.4 cm; Wt 124.3 kg
--- NOTE | ~2021-10-16 | EMS ---
[facility] [address] [place] [address] EMS Patient Care Report Name: GURDEEP ALLAN Room #: 207-P [facility] IN M.R.#: [id number] Admission: 10/16/21 Attend Phys: Dany Rod MD Discharge: 10/21/21 Date of : 41 Report #: [id number] THIS REPORT FOR: //name// Report Transmitted: 10/27/2021 13:59 EMS Care Summary [place], [place]/[facility] Incident [id number] @ 10/16/2021 13:14 Incident Location [address] [place] [address] Patient GURDEEP ALLAN Female, 76 Years 1945 Patient Address [address] [place] [address] Patient History Congestive Heart Failure (CHF),Chronic Obstructive Pulmonary Disease (COPD),Diabetes,Hypertension (HTN),Hyperlipidemia,Gastro-Esophageal Reflux Disease (GERD),Morbid Obesity,Depression,Osteoarthritis,Anxiety,Anemia,Chronic Pain,Constipation,Restless Leg Syndrome,Anorexia Nervosa,Insomnia, Patient Allergies Lisinopril,Cipro,Trimethoprim,Zolpidem,Metformin, Patient Medications Atorvastatin, Potassium, Omeprazole, Baclofen, Actos, Acetaminophen, Glucagon, Melatonin, Oxycodone, Ropinirole, Mobic, Lexapro, Buspirone, Senna, Humalog, Gabapentin, Furosemide, Ferrous Sulfate, Chief Complaint WEAKNESS Disposition Transported No Lights/[place] Dispatch Reason Unconscious/Fainting Transported To [facility] [address] [place] [address] EMS Patient Care Report Name: GURDEEP ALLAN Room #: 207-P DIS IN M.R.#: [id number] Admission: 10/16/21 Attend Phys: Dany Rod MD Discharge: 10/21/21 Date of : 41 Report #: [id number] Narrative MEDIC 30 RESPONDS TO 'SERGEY PAIGE' ON A REPORTED UNCONSCIOUS. UPON ARRIVAL EMS FINDS ADULT FEMALE SITTING IN RECLINER WITH STAFF AND FIREFIGHTERS NEARBY. STAFF REPORTS PT HAS HAD AN OVERALL DECLINE IN HEALTH OVER THE PAST APPROXIMATE SIX WEEKS, FOLLOWING PT SUDDENLY REFUSING SOME OR AT TIMES ALL MEDICAL CARE. STAFF DESCRIBES PT REFUSING DAILY "LASIX" ONE EXAMPLE AND REPORT PT HAS SINCE BECOME SWOLLEN AND HAD TO BE ON BASELINE OXYGEN WHICH IS NEW. STAFF DESCRIBE 'FAILURE TO THRIVE' LIKE CONCERNS INVOLVING PT'S DENIAL OF CARE, AND SUSEQUENT DECLINING HEALTH. WHEN ASKED FOR PT'S OWN OPINION TO WHAT IS GOING ON TODAY, PT RESPONDS "I'M NOT MYSELF. I'M WEAK. I CAN'T STAND. EVERYBODY IS TELLING ME I'M NOT THE SAME PERSON". PT TRANSPORTED WITH ONGOING ASSESSMENT. REPORT TO STAFF UPON ARRIVAL. Initial Vitals @13:51P: 140,R: 15,CO: 1,SpO2: 97, @13:54P: 89,R: 16,BP: 166/48,SpO2: 98, @13:50P: 114,R: 15,CO: 2,SpO2: 97, @13:38P: 80,R: 16,BP: 154/72,Pain: 0/10,GCS: 15,SpO2: 93,Revised Trauma: 12, Assessments @13:23MENTAL:Person Oriented,Place Oriented,Time Oriented,Event Oriented,SKIN:HEENT:Head/Face: No Abnormalities,Neck/Airway: No Abnormalities,LUNG SOUNDS:ABDOMEN:PELVIS//GI:EXTREMITIES:Capillary Refill: Left Lower: < 2 Sec,Capillary Refill: Right Lower: < 2 Sec,Right Leg: Other,Right Leg: Edema,Right Leg: Weakness,Left Leg: Edema,Left Leg: Other,Left Leg: Weakness,Left Arm: No Abnormalities,Right Arm: No Abnormalities,PULSE:Pedal: 2+ Normal,NEURO:No Abnormalities,@13:40MENTAL:Event Oriented,Place Oriented,Time Oriented,Person Oriented,SKIN:HEENT:Head/Face: No Abnormalities,Neck/Airway: No Abnormalities,LUNG SOUNDS:ABDOMEN:PELVIS//GI:EXTREMITIES:Capillary Refill: Left Lower: < 2 Sec,Capillary Refill: Right Lower: < 2 Sec,Right Leg: Weakness,Right Leg: Edema,Left Leg: Weakness,Left Leg: Edema,Left Arm: No Abnormalities,Right Arm: No Abnormalities,PULSE:Pedal: 2+ Normal,NEURO:No Abnormalities, Impression Generalized Weakness Procedures @13:23 ALS Assessment Response: UnchangedSucceeded @PTAOxygen FlowRate: 2 Device: Nasal Cannula (NC) Succeeded @13:30 Stretcher Response: Unchanged Timeline PRINTING SERVICES COORDINATOR,Oxygen FlowRate: 2 Device: Nasal Cannula (NC) Succeeded, [address] [address] EMS Patient Care Report Name: GURDEEP ALLAN Room #: 207-P [facility] IN M.R.#: [id number] Admission: 10/16/21 Attend Phys: Dany Rod MD Discharge: 10/21/21 Date of : 41 Report #: [id number] 12:42,Call Received 12:42,Dispatch Notified 13:14,Dispatched 13:15,En Route 13:21,On Scene 13:23,At Patient 13:23,ALS Assessment,Response: UnchangedSucceeded, 13:30,Stretcher,Response: Unchanged 13:38,BP: 154/72 M,PULSE: 80,RR: 16 R,SPO2: 93 Ox,ETCO2: ,BG: ,PAIN: 0,GCS: 15, 13:46,Depart Scene 13:50,BP: / M,PULSE: 114,RR: 15 R,SPO2: 97 Ox,ETCO2: ,BG: ,PAIN: ,GCS: , 13:51,BP: / M,PULSE: 140,RR: 15 R,SPO2: 97 Ox,ETCO2: ,BG: ,PAIN: ,GCS: , 13:54,BP: 166/48 M,PULSE: 89,RR: 16 R,SPO2: 98 Ox,ETCO2: ,BG: ,PAIN: ,GCS: , 13:56,At Destination 13:57,Call Closed Disclaimer v1.1 Copyright 2020 [employer] This EMS Care Summary contains data elements from the applicable legal record (which may be displayed differently). It is designed to provide pertinent information for the following purposes: continuity of care, clinical quality, and state data reporting. The complete legal record is available to ED staff and administrators of the receiving hospital in [employer]'s Patient Tracker. All data is provided "as is."
[~2021-10-16 14:03] MED LIST changes: -REQUIP3 MG PO
[2021-10-16 14:18] VITALS: BP 167/55
[2021-10-16 15:16] LABS: ABSOLUTE NEUTROPHILS 4.5 thou/uL (1.4-8.2); BASOPHILS 0.7 % (0.0-2.0); EOSINOPHILS 1.8 % (0.0-3.0); HEMATOCRIT 34.7 % (37.0-47.0); HEMOGLOBIN 11.2 gm/dL (12.0-15.0); LYMPHOCYTES 16.7 % (24.0-44.0); MCH 30.4 pg (26.0-34.0); MCHC 32.4 g/dL (28.0-37.0); MCV 93.8 fL (80.0-100.0); MONOCYTES 9.2 % (1.0-8.0); PLATELET COUNT 158 thou/uL (150-400); POLYS 71.6 % (36.0-66.0); RDW 13.7 % (10.5-14.5); WBC 6.3 thou/uL (4.0-11.0)
[2021-10-16 15:26] LABS: CALCIUM 10.3 mg/dL (8.5-10.1); CREATININE 1.3 mg/dL (0.6-1.0); POTASSIUM 4.7 mmol/L (3.5-5.1)
[2021-10-16 15:36] LABS: ALBUMIN 3.4 g/dL (3.4-5.0); TOTAL BILIRUBIN 0.4 mg/dL (0.2-1.0); TOTAL PROTEIN 7.2 g/dL (6.4-8.2)
[2021-10-16 17:46] LABS: URINE BILIRUBIN NEGATIVE (Negative); URINE BLOOD NEGATIVE (Negative); URINE CLARITY CLEAR; URINE GLUCOSE-RANDOM* NEGATIVE (Negative); URINE KETONES NEGATIVE (Negative); URINE LEUKOCYTES-REFLEX NEGATIVE (Negative); URINE NITRITE-REFLEX NEGATIVE (Negative); URINE PROTEIN (DIPSTICK) NEGATIVE (Negative); URINE UROBILINOGEN 0.2 E.U./dl (0.2-1.0)
[2021-10-16 17:47] LABS: URINE COLOR STRAW
[2021-10-16] MEDS ORDERED: ACETAMINOPHEN325 MG PO (19:36)
[2021-10-16] MEDS ORDERED: ACTOS 45 MG45 M1 PO (19:36)
[2021-10-16] MEDS ORDERED: OMEPRAZOLE 20 M20 M1 PO (19:37)
[2021-10-16] MEDS ORDERED: MELATONIN3 M1 PO (19:37)
[2021-10-16] MEDS ORDERED: HUMALOG100 UNIT/1 SUBQ (19:39)
[2021-10-16] MEDS ORDERED: IRON325 M1 PO (19:40)
[2021-10-16] MEDS ORDERED: KLOR-CON M2020 MEQ PO (19:40)
[2021-10-16] MEDS ORDERED: LEXAPRO 10 MG T10 M1 PO (19:40)
[2021-10-16] MEDS ORDERED: OXYCODONE HCL5 MG PO (19:41)
[2021-10-16] MEDS ORDERED: MOBIC7.5 MG PO (19:41)
[2021-10-16] MEDS ORDERED: LINEZOLID600 MG PO (19:41)
[2021-10-16] MEDS ORDERED: FUROSEMIDE 40 M40 MG PO (19:42)
[2021-10-16] MEDS ORDERED: NEURONTIN100 MG PO (19:44)
[2021-10-16 20:43] VITALS: BP 174/69
[2021-10-16] MEDS ORDERED: BUSPIRONE HCL5 MG PO (21:32)
[2021-10-16] MEDS ORDERED: BACLOFEN 10MG T10 MG PO (21:34)
[2021-10-16] MEDS ORDERED: IMODIUM A-D2 MG PO (21:35)
[2021-10-16] MEDS ORDERED: CALCIUM500 MG PO (21:36)
[2021-10-16] MEDS ORDERED: [UNRECOGNIZED DRUG - OTHER] PO (21:37)
[2021-10-16] MEDS ORDERED: SENNA-S 8.6-501 EACH PO (21:42)
[2021-10-16 21:50] VITALS: BP 167/76
[2021-10-17 00:07] VITALS: BP 114/53
[2021-10-17 02:44] LABS: HEMATOCRIT 32.9 % (37.0-47.0); HEMOGLOBIN 10.5 gm/dL (12.0-15.0); MCH 30.2 pg (26.0-34.0); MCHC 31.9 g/dL (28.0-37.0); MCV 94.7 fL (80.0-100.0); RBC 3.47 mil/uL (4.20-5.00); RDW 13.7 % (10.5-14.5); WBC 5.7 thou/uL (4.0-11.0)
[2021-10-17 02:50] LABS: CALCIUM 9.7 mg/dL (8.5-10.1); CREATININE 1.2 mg/dL (0.6-1.0); POTASSIUM 4.5 mmol/L (3.5-5.1)
--- NOTE | 2021-10-17 04:44 | NUR ---
Pt was an ER admit from ER, Pt presented with pain. Admission assessment completed with daughter over the phone. Assessment completed and documented. No acute event noted. Scheduled meds administered to pt. No acute events through the night. Continue to monitor. No further needs at this time.
[2021-10-17 04:58] VITALS: BP 130/58
[2021-10-17 07:47] VITALS: BP 129/44
--- NOTE | 2021-10-17 08:14 | EKG ---
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 : 1945 Requested By: Estella Kirby Order Number: [id number] MD: Paul Arroyo Measurements Intervals [place] Rate: 75 P: 71 [place]: 188 QRS: -22 QRSD: 99 T: 58 QT: 419 QTc: 468 Interpretive Statements Sinus rhythm Borderline left axis deviation Baseline wander in lead(s) V4 Compared to ECG 05/15/2020 12:22:56 No significant changes Electronically Signed On 10-17-2021 8:14:13 ACCESS LEAD by Paul Arroyo [email or web address] <ELECTRONICALLY SIGNED> By: Paul Arroyo MD, [facility] 10/17/21 0814 1431 143 Paul Arroyo MD, [facility] /EPI
[2021-10-17 11:30] VITALS: BP 142/46
--- NOTE | 2021-10-17 13:50 | NUR ---
CARE ASSUMED THIS AM, PT ALERT AND ORIENTED X2. DENIES ANY CHEST PAIN, NUMBNESS AND TINGLING. PT HAD GENERALIZED EDEMA AND 3+ BLE EDEMA AND CELLULITIS. LEGS ELEVATED AND WOUND CARE CONSULTED. PT IS INCONTINENT OF BOWEL AND URINE. JESUS CATHETER IN PLACE, PATENT AND SECURED. MAX ASSIST. FALL PRECAUTIONS IN PLACE. WILL CONTINUE TO MONITOR.
[2021-10-17 15:45] VITALS: BP 130/44
[2021-10-17 20:15] VITALS: BP 129/57
--- NOTE | 2021-10-17 22:49 | NUR ---
PATIENT RESTING IN HER ROOM WATCHING TV. PATIENT HAS WOUNDS TO BLE THAT ARE FRESHLY DRESSED. DRESSINGS ARE CDI. PATIENT PULLED IV THAT WAS IN HER RIGHT HAND OUT ACCIDENTALLY. PATIENT DOES HAVE JESUS CATHETER IN PLACE. SHE STATES THAT SHE HAS CHRONIC PAIN TO BLE. PATIENT IS AAOX2 AND HAS SOME MILD FORGETFULLNESS. VITALS STABLE. NO DISTRESS NOTED. WILL CONTINUE TO MONITOR.
[2021-10-18 03:31] LABS: HEMATOCRIT 33.2 % (37.0-47.0); HEMOGLOBIN 10.6 gm/dL (12.0-15.0); MCH 30.5 pg (26.0-34.0); MCHC 31.9 g/dL (28.0-37.0); MCV 95.7 fL (80.0-100.0); RBC 3.47 mil/uL (4.20-5.00); RDW 14.1 % (10.5-14.5); WBC 6.1 thou/uL (4.0-11.0)
[2021-10-18 03:50] LABS: CALCIUM 9.3 mg/dL (8.5-10.1); POTASSIUM 4.3 mmol/L (3.5-5.1)
[2021-10-18 04:45] VITALS: BP 133/53
[2021-10-18 08:03] VITALS: BP 147/64
--- NOTE | 2021-10-18 09:52 | HC ---
[facility] [place] [address] CONSULTATION Name: GURDEEP ALLAN Room #: 207-P ADM IN M.R.#: [id number] Admission: 10/16/21 Attend Phys: Dany Rod MD Discharge: Date of : 41 Report #: [id number] THIS REPORT FOR: cc: Roc Mejia MD, Ramilo MD Althoff,Sameer Vick MD ~ DATE OF SERVICE: 10/17/2021 CHIEF COMPLAINT: Cellulitis, bilateral lower extremities. HISTORY OF PRESENT ILLNESS: This is a 76-year-old female patient with a history of bilateral lower extremity lymphedema, who is a very poor historian with underlying dementia. She has a history of diabetes mellitus, lower extremity swelling with increasing redness and scaliness to her legs. I have been asked to see her with regard to wound care. Infectious disease service has also been consulted. The patient can provide very little information about herself currently. PAST MEDICAL HISTORY: Significant for history of UTIs, congestive heart failure, type 2 diabetes mellitus, morbid obesity, history of cervical cancer, gastroesophageal reflux, hypertension, peripheral neuropathy, insomnia and dementia. SOCIAL HISTORY: Negative for alcohol or tobacco use. FAMILY HISTORY: Unknown. REVIEW OF SYSTEMS: Mostly unobtainable due to the patient's underlying level of dementia. MEDICATIONS: At this time includes omeprazole, furosemide, buspirone, baclofen, loperamide, vitamin D3, Lipitor, trazodone, Lantus, Requip, Actos, melatonin, Humalog, potassium chloride, ferrous sulfate, escitalopram, linezolid, Mobic, oxycodone, gabapentin. ALLERGIES: CIPRO, ZOLPIDEM, LISINOPRIL, METFORMIN, SULFA, TRIMETHOPRIM. PHYSICAL EXAMINATION: VITAL SIGNS: At this time include temperature 36.7, pulse 64, respiratory rate 18, blood pressure 142/46. GENERAL: This is a chronically ill-appearing female patient who appears to be in mild discomfort. HEENT: Head normocephalic. Nose and throat are clear. NECK: Supple. LUNGS: Diminished. HEART: Irregular without murmur. [facility] [address] [address] CONSULTATION Name: GURDEEP ALLAN Room #: 207-P ADM IN M.R.#: [id number] Admission: 10/16/21 Attend Phys: Dany Rod MD Discharge: Date of : 41 Report #: [id number] ABDOMEN: Soft. Bowel sounds present. EXTREMITIES: Lower extremities demonstrate feet are pink, warm, and dry. She has significant edema bilaterally. She has erythematous patches with scaling on both pretibial regions that is nearly circumferential. It is warm and somewhat tender to palpation. NEUROLOGIC: The patient is awake. She does appear to be moving symmetrically. LABORATORY DATA: Sodium 144, potassium 4.5, chloride 104, CO2 of 37, BUN 25, creatinine 1.2. White blood cell count 5.7 with a hemoglobin of 10.5. CLINICAL IMPRESSION: 1. Lymphedema, bilateral lower extremities with cellulitis. 2. Chronic congestive heart failure. 3. Hypertension. 4. Type 2 diabetes mellitus. 5. Hyperlipidemia. 6. Anxiety. 7. Morbid obesity. RECOMMENDATIONS: At this point in time, we will recommend topical gentamicin ointment, Xeroform, ABD, Kerlix, George from toes to knees. Antibiotics per ID recommendations. I think once the cellulitis is slightly improved, I think maybe lymphedema therapy would be appropriate for her edema management. Elevation of the legs in the meantime. I appreciate being asked to see her in consultation. <ELECTRONICALLY SIGNED> By: Sameer Wooten MD 10/18/21 [phone] [id number] Sameer Wooten MD /nt
--- NOTE | 2021-10-18 13:43 | NUR ---
met with patient who resides at 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 [facility] reports patient refuses at times and they question if patient needs goals of care discussion. sp with dtr who reports patient is non compliant at nursing facility. She refuses her laxix as it makes her need to urinate too often. she refuses care and showers. Facility placed a BSC to assist her to encourge to take lasix and she doesnt like it. Dtr has discussion with patient regarding compliance. she reports patient likes hospital stays as she is waited on in hospital. Reviewed role of casemgt faxed updated information.
[2021-10-18 16:38] VITALS: BP 145/53
--- NOTE | 2021-10-18 21:49 | HC ---
[facility] [place] [address] CONSULTATION Name: GURDEEP ALLAN Room #: 207-P ADM IN M.R.#: [id number] Admission: 10/16/21 Attend Phys: Dany Rod MD Discharge: Date of : 41 Report #: [id number] THIS REPORT FOR: cc: Roc Mejia MD, Ramilo MD Geha,Jerson Silva MD ~ DATE OF SERVICE: 10/17/2021 Infectious Disease Consultation REASON FOR CONSULTATION: I was asked to evaluate concerning lower extremity cellulitis with venous stasis disease and multiple comorbidities. HISTORY OF PRESENT ILLNESS: The patient is a 76-year-old with history of diabetes, peripheral neuropathy, congestive heart failure, who has resided in a assisted for some time. She has chronic lymphedema. Over the last month, she has had increased lower extremity edema with ulcerations. Cultures were positive for MRSA. This has not been confirmed. Treated with Zyvox without improvement. No fever, chills or sweats. No increased pain. Has been using some compression wraps. No specific injury. She does walk with a walker. REVIEW OF SYSTEMS: No cardiopulmonary issues. She does have a history of congestive heart failure. No other GI or complaints. A 14-point review of system was negative other than what has been described above. ALLERGIES: CIPROFLOXACIN, ZOLPIDEM, LISINOPRIL, METFORMIN AND SULFA. MEDICATIONS: As noted on her MAR, which was reviewed. PAST MEDICAL HISTORY: Urinary tract infection, congestive heart failure, diabetes, pneumonia, sepsis, right wrist fracture, right total knee arthroplasty, cervical cancer, gastroesophageal reflux, restless leg syndrome, hypertension, hyperlipidemia, peripheral neuropathy, anxiety, anemia, depression, insomnia, allergic rhinitis, osteoarthritis, MRSA colonization, morbid obesity and chronic pain. FAMILY HISTORY: Negative for tuberculosis. SOCIAL HISTORY: Nonsmoker. No significant alcohol intake as she resides at a assisted now. PHYSICAL EXAMINATION: GENERAL: Afebrile and hemodynamically stable. Alert and cooperative, sitting up in bed. Obese. SKIN: With chronic lymphedema changes, right greater than left with ulcerations noted in the lower extremities with some serous drainage. Surrounding erythema [facility] [address] [place] [address] CONSULTATION Name: GURDEEP ALLAN Room #: 207-P ADM IN M.R.#: [id number] Admission: 10/16/21 Attend Phys: Dany Rod MD Discharge: Date of : 41 Report #: [id number] from mid foot to mid calf region. No evidence of lymphangitis or tenderness up in the groin. No palpable adenopathy. HEENT: Eyes without scleral icterus. Mouth without mucositis. NECK: Supple. LUNGS: Clear to auscultation anteriorly with few crackles in the bases posteriorly. HEART: Regular, without appreciable murmur, gallop or rub. ABDOMEN: Soft, nontender, no hepatosplenomegaly or mass. GENITAL AND RECTAL: Not performed. PSYCHIATRIC: Mood without anxiety. NEUROLOGIC: Cranial nerves intact. Strength in the upper and lower extremities was symmetric. Decreased sensation in her toes to fine touch. LABORATORY: Reviewed. IMAGING: Chest x-ray reviewed. CT scan of the chest reviewed. Venous ultrasound lower extremity reviewed. IMPRESSION: A 76-year-old with; 1. Chronic venous stasis disease in the setting of diabetes and congestive heart failure, presents now with nonhealing wounds to her lower extremities with associated cellulitis. 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 2. Congestive heart failure. 3. Diabetes. 4. Hypertension. 5. Hyperlipidemia. 6. Anxiety and depression. 7. Anemia. 8. Restless legs syndrome. 9. Thoracic spine compression fractures. RECOMMENDATIONS: 1. Continue with efforts to control edema and blood glucose levels. Continue with broad antibiotic coverage including MRSA coverage. 2. Local wound care. 3. Pain control for her chronic back pain. 4. We will continue IV antibiotic therapy, leg elevation and compression. Diabetic management. <ELECTRONICALLY SIGNED> By: Jerson Gramajo MD 10/18/21 [phone] Jerson Gramajo MD /nt
[2021-10-19 00:13] VITALS: BP 133/64
[2021-10-19 05:54] VITALS: BP 148/60
--- NOTE | 2021-10-19 07:14 | NUR ---
PATIENT REMAINS IN BED WATCHING TV. SHE IS LETHARGIC AT TIMES AND EXHIBITS SOME DELAYED RESPONSES AT TIMES. STATES THAT THE PAIN IN HER ANKLES HAS BEEN BETTER CONTROLLED TODAY. COMPLAINS OF HER BACK ITCHING. PLACED LOTION ON PATIENTS BACK. VSS. ALL SAFETY PRECAUTIONS IN PLACE. NO S/S OF DISTRESS NOTED. WILL CONTINUE TO MONITOR.
[2021-10-19 07:28] VITALS: BP 147/53
[2021-10-19 15:18] VITALS: BP 130/53
--- NOTE | 2021-10-19 16:47 | NUR ---
Updated [facility] with faxed updates. Updated with BPCI letter.
[2021-10-19 19:44] VITALS: BP 153/55
--- NOTE | 2021-10-20 03:57 | NUR ---
ALERT AND OREINTED X3 WITH SOME FORGETFULNESS TOO. LUNGS CLEAR TO DIMINISHED. ON 3 LITERS NASAL CANULA. JESUS TO DD FOR URINE OUTPUT . LEGS ARE WRAPPED BILAERAL. 2-3 PLUS PEDAL EDMA NOTED BILATERAL. ANTIBIOTICS GIVEN. RESTING CALL LIGHT WITHIN REACH IF NEEDS ASSISTANCE PER NURSING.
[2021-10-20 04:17] VITALS: BP 148/51
[2021-10-20 05:13] LABS: CALCIUM 9.2 mg/dL (8.5-10.1); MAGNESIUM 1.6 mg/dL (1.8-2.4)
[2021-10-20 05:30] LABS: HEMATOCRIT 32.1 % (37.0-47.0); HEMOGLOBIN 10.4 gm/dL (12.0-15.0); MCH 30.7 pg (26.0-34.0); MCHC 32.4 g/dL (28.0-37.0); MCV 94.7 fL (80.0-100.0); RBC 3.39 mil/uL (4.20-5.00); RDW 13.4 % (10.5-14.5); WBC 6.6 thou/uL (4.0-11.0)
[2021-10-20 07:29] VITALS: BP 156/60
[2021-10-20 11:25] VITALS: BP 149/59
[2021-10-20] MEDS ORDERED: BACLOFEN 10MG T10 MG PO (13:30)
[2021-10-20] MEDS ORDERED: OXYCODONE HCL 55 MG PO (13:30)
[2021-10-20] MEDS ORDERED: LANTUS100 UNIT/M SUBQ (13:33)
[2021-10-20] MEDS ORDERED: HUMALOG100 UNIT/1 SUBQ (13:34)
[2021-10-20] MEDS ORDERED: VIBRAMYCIN 100100 MG PO (13:39)
[2021-10-20 15:34] VITALS: BP 150/54
--- NOTE | 2021-10-20 16:16 | NUR ---
Patient intially dc today to [facility]. Sp with Dell the Rn at first reports they can accept then later called and cannot due to staffing. Sp with Dr Bernal to plan dc in am. Patient to dc at 1200 noon via [employer] van. chart copied. Print and fax orders to [phone]. Call report at [phone]. call dtr to alert of discharge.
[2021-10-20 19:45] VITALS: BP 160/95
--- NOTE | 2021-10-21 04:00 | NUR ---
PT IS ALERT AND ORIENTED X4. LUNGS ARE CLEAR . ON ROOM AIR. ABDOMEN IS SOFT AND PT IS OBESE HAS A JESUS CATH AT THIS TIME. SLEEPING DURING THE NIGHT.CONTACT MRSA. CELLULITIS DRESSING BILATERAL ON BOTH LEGS WRAPPED WITH KENIA WRAP AND MEDS. DENIES ANY PAIN ISSUES. ONGOING NURSING CARE. SUPOSED TO BE DISCHARGED TOMMOROW TO FACILITY SHE STAYS AT FOR PLAN OF CARE. CALL LIGHT WITHIN REACH IF NEEDS ASISSTANCE
[2021-10-21 04:19] LABS: HEMATOCRIT 33.7 % (37.0-47.0); HEMOGLOBIN 10.9 gm/dL (12.0-15.0); MCH 30.4 pg (26.0-34.0); MCHC 32.2 g/dL (28.0-37.0); MCV 94.3 fL (80.0-100.0); RBC 3.57 mil/uL (4.20-5.00); RDW 13.4 % (10.5-14.5); WBC 7.3 thou/uL (4.0-11.0)
[2021-10-21 04:43] LABS: CALCIUM 9.5 mg/dL (8.5-10.1); MAGNESIUM 1.7 mg/dL (1.8-2.4); POTASSIUM 3.9 mmol/L (3.5-5.1)
[2021-10-21 04:58] VITALS: BP 172/72
[2021-10-21 07:26] VITALS: BP 161/61
--- NOTE | 2021-10-21 11:43 | NUR ---
REPORT CALLED TO [facility]. NURSE STATED SHE WAS NOT AWARE OF THE PATIENT COMING AND ASKED TO HAVE THE ORDERS REFAXED. NURSE ACCEPTED REPORT.
--- NOTE | 2021-10-21 12:24 | NUR ---
DISCHARGED PATIENT, REPORT CALLED TO RECEIVING FACILITY AND ORDERS FAXED. ASSISTED TRANSPORT IN MOVING PATIENT FROM BED TO COT WITHOUT INCIDENT. REMOVED IV, TIP WAS INTACT. REMOVED PIANO AND ORGAN REFINISHER.
--- NOTE | 2021-10-21 12:46 | NUR ---
DISCHARGED WAS ARRANGED YESTERDAY BY [facility] FOR PT TO DC TODAY AT 1200 FAXED DC ORDERS/SUMMARY TO [facility] RECEIVED CONFIRMATION. TRANSPORT ARRANGED BY [employer] [facility] ALSO CONFIRMED WITH PT'S DTR (JONATHAN) THAT SHE WAS NOTIFIED YESTERDAY OF DC AND TIME OF TRANSPORT. CHART COPY PER US.
== END 2021-10-21 12:23 | DRG 602 ==
LOC: ER 14:03 → EROBS 20:01 → 2N 20:01
PROVIDERS: Emergency Medicine; Hospitalist; Internal Medicine; Nurse Practitioner Family; ADMIT Internal Medicine; ATTEND Internal Medicine
DX: L03.116 Cellulitis of left lower limb (principal); N17.0 Acute kidney failure with tubular necrosis; L97.911 Non-pressure chronic ulcer of unspecified part of right lower leg limited to breakdown of skin; L97.921 Non-pressure chronic ulcer of unspecified part of left lower leg limited to breakdown of skin; Z68.43 Body mass index [BMI] 50.0-59.9, adult; E44.1 Mild protein-calorie malnutrition; I50.32 Chronic diastolic (congestive) heart failure; I87.8 Other specified disorders of veins; L03.115 Cellulitis of right lower limb; Z20.822 Contact with and (suspected) exposure to COVID-19; Z79.899 Other long term (current) drug therapy; Z88.2 Allergy status to sulfonamides; Z88.8 Allergy status to other drugs, medicaments and biological substances; Z90.49 Acquired absence of other specified parts of digestive tract; Z90.710 Acquired absence of both cervix and uterus; I83.009 Varicose veins of unspecified lower extremity with ulcer of unspecified site; E11.42 Type 2 diabetes mellitus with diabetic polyneuropathy; Z79.4 Long term (current) use of insulin; D64.9 Anemia, unspecified; F41.9 Anxiety disorder, unspecified; K21.9 Gastro-esophageal reflux disease without esophagitis; I11.0 Hypertensive heart disease with heart failure; E66.01 Morbid (severe) obesity due to excess calories; Z86.14 Personal history of Methicillin resistant Staphylococcus aureus infection; G25.81 Restless legs syndrome; G47.00 Insomnia, unspecified; Z66 Do not resuscitate; F32.A Depression, unspecified; D50.9 Iron deficiency anemia, unspecified
CPT/HCPCS: 10081